=== PATIENT | male | born 1980 | race Caucasian/White ===

== ENCOUNTER 2017-09-18 08:50 | Inpatient (IN) | payer OTHER ==
[2017-09-18 12:23] VITALS: BMI 24.1
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
[2017-09-18] MEDS ORDERED: MAG HYDROX/AL HYDROX/SIMETH 30 ML UNIT-DOSE CUP PO PRN (16:41)
[2017-09-18] MEDS ORDERED: P-EPHED 60MG/TRIPROLIDI 2.5MG TABLET PO PRN (16:41)
[2017-09-18] MEDS ORDERED: NICOTINE POLACRILEX 4 MG GUM BC PRN (16:41)
[2017-09-18] MEDS ORDERED: guaiFENesin/D-METHORPHAN HB 10 ML UNIT-DOSE CUPS PO PRN (16:41)
[2017-09-18] MEDS ORDERED: MAGNESIUM CITRATE 300 ML BOTTLE PO PRN (16:41)
[2017-09-18] MEDS ORDERED: LOPERAMIDE HCL 2 MG CAPSULE PO PRN (16:41)
[2017-09-18] MEDS ORDERED: IBUPROFEN 400 MG TABLET (FP) PO PRN (16:41)
[2017-09-18] MEDS ORDERED: MENTHOL/PHENOL 1 EACH UD MM PRN (16:41)
[2017-09-18] MEDS ORDERED: chlordiazePOXIDE HCL 25 MG CAPSULE PO PRN (16:41)
[2017-09-18] MEDS ORDERED: MAGNESIUM HYDROX 2400MG/30ML ORAL SUSPENSION 30 ML CUP PO PRN (16:41)
[2017-09-18] MEDS ORDERED: chlordiazePOXIDE HCL 25 MG CAPSULE PO ONE (18:15)
[2017-09-18] MEDS: NICOTINE 21 MG/24 HOURS TOPICAL PATCH TD SCH (18:51)
[2017-09-18] MEDS: BACITRACIN 0.9 GM PACKET TP SCH (22:22)
[2017-09-18] MEDS: THIAMINE HCL 100 MG TABLET (FP) PO SCH (22:22)
[2017-09-18] MEDS: chlordiazePOXIDE HCL 25 MG CAPSULE PO SCH (22:23)
[2017-09-18] MEDS: AMOXICILLIN 500 MG CAPSULE (FP) PO SCH (22:23)
[2017-09-18 23:01] LABS: URINE APPEARANCE CLEAR; URINE BILIRUBIN NEGATIVE (NEGATIVE); URINE BLOOD NEGATIVE (NEGATIVE); URINE COLOR YELLOW; URINE GLUCOSE (UA) NEGATIVE (NEGATIVE); URINE KETONE NEGATIVE (NEGATIVE); URINE LEUK ESTERASE NEGATIVE (NEGATIVE); URINE NITRITE NEGATIVE (NEGATIVE); URINE PROTEIN NEGATIVE (NEGATIVE); URINE UROBILINOGEN NEGATIVE mg/dL (0.2-1.0)
[2017-09-19] MEDS ORDERED: METHADONE HCL 10 MG TABLET ONE (05:04)
[2017-09-19] MEDS ORDERED: METHADONE HCL 40 MG DISPERSABLE TABLET ONE (05:05)
[2017-09-19] MEDS ORDERED: METHADONE HCL 10 MG TABLET PO SCH (06:00)
[2017-09-19] MEDS: METHADONE 40 MG, METHADONE 20 MG PO SCH (06:08)
[2017-09-19] MEDS: chlordiazePOXIDE HCL 25 MG CAPSULE PO SCH ×4 (06:08→22:09)
[2017-09-19 09:58] LABS: HEMOGLOBIN 11.3 GM/dL (11.7-16.9); MCH 27.1 pg (25.7-33.7); MCHC 31.4 g/dl (32.0-35.9); MEAN CELL VOLUME 86.2 fl (80-96); RBC 4.17 M/mm3 (4.00-5.60); RDW 16.6 % (11.9-15.9); WHITE BLOOD COUNT 5.5 K/mm3 (4.0-10.0)
[2017-09-19] MEDS: NICOTINE 21 MG/24 HOURS TOPICAL PATCH TD SCH (10:23)
[2017-09-19] MEDS: BACITRACIN 0.9 GM PACKET TP SCH ×2 (10:23→23:18)
[2017-09-19] MEDS: AMOXICILLIN 500 MG CAPSULE (FP) PO SCH ×2 (10:23→22:09)
[2017-09-19] MEDS: PRENATAL VITAMINS W/ FOLIC ACID TABLET (FP) PO SCH (10:23)
--- NOTE | 2017-09-19 10:45 | PN ---
[facility] CIWA - CIWA Score Nausea/Vomitin-No Nausea/No Vomiting Muscle Tremors: 4-Moderate,w/Arms Extend Anxiety: 4-Mod. Anxious/Guarded Agitation: 4-Moderately Restless Paroxysmal Sweats: 1-Minimal Palms Moist Orientation: 0-Oriented Tacttile Disturbances: 3-Moderate Itch/Numb/Burn Auditory Disturbances: 0-None Visual Disturbances: 0-None Headache: 0-None Present CIWA-Ar Total Score: 16 S Progress Note (SOAP) Subjective: C/O "A LOT OF BODY ACHES", ANXIETY,SWEATS,CHILLS, INTERMITTENT SLEEP. Objective: 09/19/17 10:46 Vital Signs Temperature 96.3 F L 09/19/17 09:24 Pulse Rate 89 09/19/17 09:24 Respiratory Rate 18 09/19/17 09:24 Blood Pressure 118/77 09/19/17 09:24 O2 Sat by Pulse Oximetry (%) Laboratory Last Values WBC 5.5 K/mm3 (4.0-10.0) 09/19/17 06:00 RBC 4.17 M/mm3 (4.00-5.60) 09/19/17 06:00 Hgb 11.3 GM/dL (11.7-16.9) L 09/19/17 06:00 Hct 36.0 % (35.4-49) 09/19/17 06:00 MCV 86.2 fl (80-96) 09/19/17 06:00 MCH 27.1 pg (25.7-33.7) 09/19/17 06:00 MCHC 31.4 g/dl (32.0-35.9) L 09/19/17 06:00 RDW 16.6 % (11.9-15.9) H 09/19/17 06:00 MPV 9.0 fl (7.5-11.1) 09/19/17 06:00 Urine Color Yellow 09/18/17 22:40 Urine Appearance Clear 09/18/17 22:40 Urine pH 5.0 (5.0-8.0) 09/18/17 22:40 Ur Specific [place] 1.009 (1.001-1.035) 09/18/17 22:40 Urine Protein Negative (NEGATIVE) 09/18/17 22:40 Urine Glucose (UA) Negative (NEGATIVE) 09/18/17 22:40 Urine Ketones Negative (NEGATIVE) 09/18/17 22:40 Urine Blood Negative (NEGATIVE) 09/18/17 22:40 Urine Nitrite Negative (NEGATIVE) 09/18/17 22:40 Urine Bilirubin Negative (NEGATIVE) 09/18/17 22:40 Urine Urobilinogen Negative mg/dL (0.2-1.0) 09/18/17 22:40 Ur Leukocyte Esterase Negative (NEGATIVE) 09/18/17 22:40 HIV 1&2 Antibody Screen Negative 09/18/17 15:00 HIV P24 Antigen Negative 09/18/17 15:00 OTHER RESULTS PENDING Assessment: 09/19/17 10:46 WITHDRAWAL SX Plan: CONTINUE DETOX FLEXERIL AND MOTRIN DIRECTED
[2017-09-19 11:32] LABS: CHLORIDE 104 mmol/L (98-107); POTASSIUM 3.9 mmol/L (3.5-5.1); SODIUM 138 mmol/L (136-145)
[2017-09-19] MEDS: IBUPROFEN 600 MG TABLET (FP) PO PRN ×2 (11:34→22:10)
[2017-09-19 11:44] LABS: ALBUMIN 3.7 g/dl (3.4-5.0); ALK PHOS 112 U/L (45-117); ANION GAP 11 (8-16); BILIRUBIN,TOTAL 0.6 mg/dL (0.2-1.0); BLOOD UREA NITROGEN 11 mg/dL (7-18); CALCIUM 9.3 mg/dL (8.5-10.1); CO2 23 mmol/L (21-32); CREATININE 0.9 mg/dL (0.7-1.3); GLUCOSE,RANDOM 84 mg/dL (74-106); SGOT/AST 210 U/L (15-37); SGPT/ALT 125 U/L (12-78); TOT PROT 9.6 g/dl (6.4-8.2)
[2017-09-19] MEDS: CYCLOBENZAPRINE HCL 10 MG TABLET (FP) PO SCH ×2 (13:13→22:09)
[2017-09-19 14:36] LABS: PLATELET COUNT 204 K/MM3 (134-434)
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
[2017-09-19] MEDS: THIAMINE HCL 100 MG TABLET (FP) PO SCH (22:09)
[2017-09-20] MEDS ORDERED: METHADONE HCL 40 MG DISPERSABLE TABLET ONE (03:11)
[2017-09-20] MEDS ORDERED: METHADONE HCL 10 MG TABLET ONE (03:11)
[2017-09-20] MEDS: METHADONE 40 MG, METHADONE 20 MG PO SCH (05:59)
[2017-09-20] MEDS: chlordiazePOXIDE HCL 25 MG CAPSULE PO SCH ×3 (05:59→17:55)
[2017-09-20] MEDS: CYCLOBENZAPRINE HCL 10 MG TABLET (FP) PO SCH ×3 (05:59→22:05)
[2017-09-20] MEDS: IBUPROFEN 600 MG TABLET (FP) PO PRN (06:02)
--- NOTE | 2017-09-20 07:53 | EKG ---
Test Reason : Blood Pressure : / mmHG Vent. Rate : 064 BPM Atrial Rate : 064 BPM P-R Int : 142 ms QRS Dur : 100 ms QT Int : 464 ms P-R-T Axes : 060 070 064 degrees QTc Int : 478 ms NORMAL SINUS RHYTHM NORMAL ECG WHEN COMPARED WITH ECG OF 18-SEP-2017 18:57, NO SIGNIFICANT CHANGE WAS FOUND Confirmed by SYEDA JUSTIN MD ([id number]) on 09/20/2017 7:53:36 AM Referred By: Confirmed By:SYEDA JUSTIN MD
--- NOTE | 2017-09-20 07:54 | EKG ---
Test Reason : Blood Pressure : / mmHG Vent. Rate : 067 BPM Atrial Rate : 067 BPM P-R Int : 130 ms QRS Dur : 096 ms QT Int : 470 ms P-R-T Axes : 053 073 066 degrees QTc Int : 496 ms NORMAL SINUS RHYTHM PROLONGED QT ABNORMAL ECG NO PREVIOUS ECGS AVAILABLE Confirmed by MARGOTH FAITH, SYEDA ([id number]) on 09/20/2017 7:54:24 AM Referred By: Confirmed By:SYEDA JUSTIN MD
[2017-09-20] MEDS: NICOTINE 21 MG/24 HOURS TOPICAL PATCH TD SCH (10:17)
[2017-09-20] MEDS: PRENATAL VITAMINS W/ FOLIC ACID TABLET (FP) PO SCH (10:17)
[2017-09-20] MEDS: BACITRACIN 0.9 GM PACKET TP SCH ×2 (10:17→22:04)
[2017-09-20] MEDS: AMOXICILLIN 500 MG CAPSULE (FP) PO SCH ×2 (10:18→22:05)
[2017-09-20] MEDS: ACETAMINOPHEN 325 MG TABLET (FP) PO PRN ×2 (10:19→17:57)
--- NOTE | 2017-09-20 12:13 | PN ---
[facility] CIWA - CIWA Score Nausea/Vomitin-No Nausea/No Vomiting Muscle Tremors: 4-Moderate,w/Arms Extend Anxiety: 4-Mod. Anxious/Guarded Agitation: 4-Moderately Restless Paroxysmal Sweats: 1-Minimal Palms Moist Orientation: 0-Oriented Tacttile Disturbances: 3-Moderate Itch/Numb/Burn Auditory Disturbances: 0-None Visual Disturbances: 0-None Headache: 0-None Present CIWA-Ar Total Score: 16 BHS Progress Note (SOAP) Subjective: ANXIETY,SWEATS, TREMORS,INTERMITTENT SLEEP. Objective: 09/20/17 12:09 Vital Signs Temperature 97.0 F L 09/20/17 09:53 Pulse Rate 77 09/20/17 09:53 Respiratory Rate 18 09/20/17 09:53 Blood Pressure 125/78 09/20/17 09:53 O2 Sat by Pulse Oximetry (%) Laboratory Last Values WBC 5.5 K/mm3 (4.0-10.0) 09/19/17 06:00 RBC 4.17 M/mm3 (4.00-5.60) 09/19/17 06:00 Hgb 11.3 GM/dL (11.7-16.9) L 09/19/17 06:00 Hct 36.0 % (35.4-49) 09/19/17 06:00 MCV 86.2 fl (80-96) 09/19/17 06:00 MCH 27.1 pg (25.7-33.7) 09/19/17 06:00 MCHC 31.4 g/dl (32.0-35.9) L 09/19/17 06:00 RDW 16.6 % (11.9-15.9) H 09/19/17 06:00 Plt Count 204 K/MM3 (134-434) 09/19/17 06:00 MPV 9.0 fl (7.5-11.1) 09/19/17 06:00 Sodium 138 mmol/L (136-145) 09/19/17 06:00 Potassium 3.9 mmol/L (3.5-5.1) 09/19/17 06:00 Chloride 104 mmol/L (98-107) 09/19/17 06:00 Carbon Dioxide 23 mmol/L (21-32) 09/19/17 06:00 Anion Gap 11 (8-16) 09/19/17 06:00 BUN 11 mg/dL (7-18) 09/19/17 06:00 Creatinine 0.9 mg/dL (0.7-1.3) 09/19/17 06:00 Creat Clearance w eGFR > 60 (>60) 09/19/17 06:00 Random Glucose 84 mg/dL (74-106) 09/19/17 06:00 Calcium 9.3 mg/dL (8.5-10.1) 09/19/17 06:00 Total Bilirubin 0.6 mg/dL (0.2-1.0) 09/19/17 06:00 AST 210 U/L (15-37) H 09/19/17 06:00 ALT 125 U/L (12-78) H 09/19/17 06:00 Alkaline Phosphatase 112 U/L (45-117) 09/19/17 06:00 Total Protein 9.6 g/dl (6.4-8.2) H 09/19/17 06:00 Albumin 3.7 g/dl (3.4-5.0) 09/19/17 06:00 Urine Color Yellow 09/18/17 22:40 Urine Appearance Clear 09/18/17 22:40 Urine pH 5.0 (5.0-8.0) 09/18/17 22:40 Ur Specific [place] 1.009 (1.001-1.035) 09/18/17 22:40 Urine Protein Negative (NEGATIVE) 09/18/17 22:40 Urine Glucose (UA) Negative (NEGATIVE) 09/18/17 22:40 Urine Ketones Negative (NEGATIVE) 09/18/17 22:40 Urine Blood Negative (NEGATIVE) 09/18/17 22:40 Urine Nitrite Negative (NEGATIVE) 09/18/17 22:40 Urine Bilirubin Negative (NEGATIVE) 09/18/17 22:40 Urine Urobilinogen Negative mg/dL (0.2-1.0) 09/18/17 22:40 Ur Leukocyte Esterase Negative (NEGATIVE) 09/18/17 22:40 RPR Titer Nonreactive (NONREACTIVE) 09/19/17 06:00 HIV 1&2 Antibody Screen Negative 09/18/17 15:00 HIV P24 Antigen Negative 09/18/17 15:00 LABS NOTED Assessment: 09/20/17 12:10 WITHDRAWAL SX Plan: CONTINUE DETOX REPEAT AST/ALT;INR IN AM
[2017-09-20] MEDS ORDERED: NAPROXEN 500 MG TABLET (FP) PO ONE ×2 (12:30→15:30)
[2017-09-20] MEDS: THIAMINE HCL 100 MG TABLET (FP) PO SCH (22:04)
[2017-09-20] MEDS: chlordiazePOXIDE 5 MG CAPSULE PO SCH (22:05)
[2017-09-20] MEDS: NAPROXEN 500 MG TABLET (FP) PO SCH (22:05)
[2017-09-21] MEDS ORDERED: METHADONE HCL 10 MG TABLET ONE (04:04)
[2017-09-21] MEDS ORDERED: METHADONE HCL 40 MG DISPERSABLE TABLET ONE (04:05)
[2017-09-21] MEDS: METHADONE 40 MG, METHADONE 20 MG PO SCH (05:37)
[2017-09-21] MEDS: chlordiazePOXIDE 5 MG CAPSULE PO SCH ×3 (05:37→17:24)
[2017-09-21] MEDS: CYCLOBENZAPRINE HCL 10 MG TABLET (FP) PO SCH ×3 (05:38→22:08)
[2017-09-21] MEDS: ACETAMINOPHEN 325 MG TABLET (FP) PO PRN ×2 (05:38→17:27)
[2017-09-21 10:12] LABS: SGOT/AST 95 U/L (15-37); SGPT/ALT 93 U/L (12-78)
[2017-09-21 10:18] LABS: INR 0.94 (0.82-1.09); PROTHROMBIN TIME (PATIENT) 10.6 SEC (9.98-11.88)
[2017-09-21] MEDS: BACITRACIN 0.9 GM PACKET TP SCH ×2 (10:29→22:09)
[2017-09-21] MEDS: PRENATAL VITAMINS W/ FOLIC ACID TABLET (FP) PO SCH (10:29)
[2017-09-21] MEDS: NAPROXEN 500 MG TABLET (FP) PO SCH ×2 (10:29→22:08)
[2017-09-21] MEDS: AMOXICILLIN 500 MG CAPSULE (FP) PO SCH ×2 (10:29→22:08)
[2017-09-21] MEDS: NICOTINE 21 MG/24 HOURS TOPICAL PATCH TD SCH (10:30)
--- NOTE | 2017-09-21 10:33 | PN ---
S Progress Note (SOAP) Subjective: SLIGHT ANXIETY, SWEATS. OOB AMBULATING WITH STEADY GAIT BUT APPEARS FATIGUED. Objective: 09/21/17 10:33 Vital Signs Temperature 96.0 F L 09/21/17 09:57 Pulse Rate 67 09/21/17 09:57 Respiratory Rate 19 09/21/17 09:57 Blood Pressure 123/73 09/21/17 09:57 O2 Sat by Pulse Oximetry (%) Laboratory Last Values WBC 5.5 K/mm3 (4.0-10.0) 09/19/17 06:00 RBC 4.17 M/mm3 (4.00-5.60) 09/19/17 06:00 Hgb 11.3 GM/dL (11.7-16.9) L 09/19/17 06:00 Hct 36.0 % (35.4-49) 09/19/17 06:00 MCV 86.2 fl (80-96) 09/19/17 06:00 MCH 27.1 pg (25.7-33.7) 09/19/17 06:00 MCHC 31.4 g/dl (32.0-35.9) L 09/19/17 06:00 RDW 16.6 % (11.9-15.9) H 09/19/17 06:00 Plt Count 204 K/MM3 (134-434) 09/19/17 06:00 MPV 9.0 fl (7.5-11.1) 09/19/17 06:00 Sodium 138 mmol/L (136-145) 09/19/17 06:00 Potassium 3.9 mmol/L (3.5-5.1) 09/19/17 06:00 Chloride 104 mmol/L (98-107) 09/19/17 06:00 Carbon Dioxide 23 mmol/L (21-32) 09/19/17 06:00 Anion Gap 11 (8-16) 09/19/17 06:00 BUN 11 mg/dL (7-18) 09/19/17 06:00 Creatinine 0.9 mg/dL (0.7-1.3) 09/19/17 06:00 Creat Clearance w eGFR > 60 (>60) 09/19/17 06:00 Random Glucose 84 mg/dL (74-106) 09/19/17 06:00 Calcium 9.3 mg/dL (8.5-10.1) 09/19/17 06:00 Total Bilirubin 0.6 mg/dL (0.2-1.0) 09/19/17 06:00 AST 95 U/L (15-37) H D 09/21/17 07:00 ALT 93 U/L (12-78) H D 09/21/17 07:00 Alkaline Phosphatase 112 U/L (45-117) 09/19/17 06:00 Total Protein 9.6 g/dl (6.4-8.2) H 09/19/17 06:00 Albumin 3.7 g/dl (3.4-5.0) 09/19/17 06:00 Urine Color Yellow 09/18/17 22:40 Urine Appearance Clear 09/18/17 22:40 Urine pH 5.0 (5.0-8.0) 09/18/17 22:40 Ur Specific [place] 1.009 (1.001-1.035) 09/18/17 22:40 Urine Protein Negative (NEGATIVE) 09/18/17 22:40 Urine Glucose (UA) Negative (NEGATIVE) 09/18/17 22:40 Urine Ketones Negative (NEGATIVE) 09/18/17 22:40 Urine Blood Negative (NEGATIVE) 09/18/17 22:40 Urine Nitrite Negative (NEGATIVE) 09/18/17 22:40 Urine Bilirubin Negative (NEGATIVE) 09/18/17 22:40 Urine Urobilinogen Negative mg/dL (0.2-1.0) 09/18/17 22:40 Ur Leukocyte Esterase Negative (NEGATIVE) 09/18/17 22:40 RPR Titer Nonreactive (NONREACTIVE) 09/19/17 06:00 HIV 1&2 Antibody Screen Negative 09/18/17 15:00 HIV P24 Antigen Negative 09/18/17 15:00 Assessment: 09/21/17 10:33 WITHDRAWAL SX Plan: CONTINUE DETOX
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
[2017-09-21] MEDS ORDERED: hydrOXYzine PAMOATE 50 MG CAPSULE (FP) PO PRN (15:40)
[2017-09-21] MEDS: THIAMINE HCL 100 MG TABLET (FP) PO SCH (22:08)
[2017-09-21] MEDS: chlordiazePOXIDE HCL 10 MG CAPSULE PO SCH (22:09)
[2017-09-22] MEDS ORDERED: METHADONE HCL 40 MG DISPERSABLE TABLET ONE (03:44)
[2017-09-22] MEDS ORDERED: METHADONE HCL 10 MG TABLET ONE (03:44)
[2017-09-22] MEDS: METHADONE 40 MG, METHADONE 20 MG PO SCH (05:23)
[2017-09-22] MEDS: chlordiazePOXIDE HCL 10 MG CAPSULE PO SCH ×3 (05:24→17:36)
[2017-09-22] MEDS: CYCLOBENZAPRINE HCL 10 MG TABLET (FP) PO SCH ×2 (05:24→15:26)
[2017-09-22] MEDS ORDERED: ESCITALOPRAM OXALATE 10 MG TABLET (FP) PO SCH (10:00)
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
[2017-09-22] MEDS: NICOTINE 21 MG/24 HOURS TOPICAL PATCH TD SCH (10:21)
[2017-09-22] MEDS: NAPROXEN 500 MG TABLET (FP) PO SCH (10:21)
[2017-09-22] MEDS: AMOXICILLIN 500 MG CAPSULE (FP) PO SCH (10:21)
[2017-09-22] MEDS: PRENATAL VITAMINS W/ FOLIC ACID TABLET (FP) PO SCH (10:21)
[2017-09-22] MEDS: BACITRACIN 0.9 GM PACKET TP SCH (10:21)
[2017-09-22 17:50] VITALS: BP 122/79; PULSE 77; TEMP 97.7
== END 2017-09-22 18:12 | disposition other institution (70) | DRG 773 ==
LOC: YASAS 08:50 → Y3N 15:47
PROVIDERS: ADMIT Internal Medicine; ATTEND Internal Medicine
PROC: HZ2ZZZZ Detoxification Services for Substance Abuse Treatment (ICD-10-PCS; principal; 2017-09-18)
DX: F11.20 Opioid dependence, uncomplicated (principal); F10.230 Alcohol dependence with withdrawal, uncomplicated; F19.24 Other psychoactive substance dependence with psychoactive substance-induced mood disorder; F32.9 Major depressive disorder, single episode, unspecified; F43.10 Post-traumatic stress disorder, unspecified; G47.00 Insomnia, unspecified; B18.2 Chronic viral hepatitis C; Z87.19 Personal history of other diseases of the digestive system; Z59.0 Homelessness
CPT/HCPCS: 36415; 80053; 81003; 84450; 84460; 85027; 85610; 86593; 87389; 93005; 93010

== ENCOUNTER 2017-09-22 18:19 | Inpatient (IN) | payer OTHER ==
[2017-09-22] MEDS ORDERED: MAGNESIUM HYDROX 2400MG/30ML ORAL SUSPENSION 30 ML CUP PO PRN (19:36)
[2017-09-22] MEDS ORDERED: MAGNESIUM CITRATE 300 ML BOTTLE PO PRN (19:36)
[2017-09-22] MEDS ORDERED: guaiFENesin/D-METHORPHAN HB 10 ML UNIT-DOSE CUPS PO PRN (19:36)
[2017-09-22] MEDS ORDERED: MENTHOL/PHENOL 1 EACH UD MM PRN (19:36)
[2017-09-22] MEDS ORDERED: P-EPHED 60MG/TRIPROLIDI 2.5MG TABLET PO PRN (19:36)
[2017-09-22] MEDS ORDERED: MAG HYDROX/AL HYDROX/SIMETH 30 ML UNIT-DOSE CUP PO PRN (19:36)
--- NOTE | 2017-09-22 19:42 | HP ---
[facility] Rehab Assess/Revision - Admission History Admitted to Rehab from: [facility] Date of Admission to Rehab: 09/22/17 - Findings Detox History & Physical reviewed: Yes Concur with findings: Yes Comments/Additional Findings: ADMIT TO REHAB Inpatient Rehab Admission - Initial Determination Are CD services needed?: Yes Free of communicable disease: Yes Not in need of hospitalization: Yes - Rehab Admission Criteria Previous failed treatment: Yes Poor recovery environment: Yes Comorbidities: Yes Lacks judgement: Yes Patient is meeting Inpatient Rehab admission criteria:: Yes
[2017-09-22] MEDS: THIAMINE HCL 100 MG TABLET (FP) PO SCH (21:41)
[2017-09-22] MEDS: NAPROXEN 500 MG TABLET (FP) PO SCH (22:06)
[2017-09-22] MEDS: CYCLOBENZAPRINE HCL 10 MG TABLET (FP) PO PRN (22:06)
[2017-09-23] MEDS ORDERED: METHADONE HCL 10 MG TABLET PO SCH (06:00)
[2017-09-23] MEDS ORDERED: METHADONE HCL 40 MG DISPERSABLE TABLET ONE (06:11)
[2017-09-23] MEDS ORDERED: METHADONE HCL 10 MG TABLET ONE (06:11)
[2017-09-23] MEDS: METHADONE 40 MG, METHADONE 20 MG PO SCH (06:29)
[2017-09-23] MEDS: NAPROXEN 500 MG TABLET (FP) PO SCH ×2 (09:25→22:14)
[2017-09-23] MEDS: PRENATAL VITAMINS W/ FOLIC ACID TABLET (FP) PO SCH (09:25)
[2017-09-23] MEDS: NICOTINE 21 MG/24 HOURS TOPICAL PATCH TD SCH (09:25)
[2017-09-23] MEDS: CYCLOBENZAPRINE HCL 10 MG TABLET (FP) PO PRN (15:26)
[2017-09-23] MEDS: IBUPROFEN 400 MG TABLET (FP) PO PRN ×2 (15:26→22:16)
[2017-09-23] MEDS: THIAMINE HCL 100 MG TABLET (FP) PO SCH (22:14)
[2017-09-24] MEDS: ACETAMINOPHEN 325 MG TABLET (FP) PO PRN (01:02)
[2017-09-24] MEDS ORDERED: METHADONE HCL 10 MG TABLET ONE (02:51)
[2017-09-24] MEDS ORDERED: METHADONE HCL 40 MG DISPERSABLE TABLET ONE (02:51)
[2017-09-24] MEDS: METHADONE 40 MG, METHADONE 20 MG PO SCH (06:54)
[2017-09-24] MEDS: IBUPROFEN 400 MG TABLET (FP) PO PRN ×2 (07:34→14:26)
[2017-09-24] MEDS: NAPROXEN 500 MG TABLET (FP) PO SCH ×2 (09:29→21:21)
[2017-09-24] MEDS: NICOTINE 21 MG/24 HOURS TOPICAL PATCH TD SCH (09:29)
[2017-09-24] MEDS: PRENATAL VITAMINS W/ FOLIC ACID TABLET (FP) PO SCH (09:29)
[2017-09-24] MEDS: CYCLOBENZAPRINE HCL 10 MG TABLET (FP) PO PRN ×2 (14:26→21:22)
[2017-09-24] MEDS: THIAMINE HCL 100 MG TABLET (FP) PO SCH (21:21)
[2017-09-25] MEDS ORDERED: METHADONE HCL 10 MG TABLET ONE (03:48)
[2017-09-25] MEDS ORDERED: METHADONE HCL 40 MG DISPERSABLE TABLET ONE (03:48)
[2017-09-25] MEDS: METHADONE 40 MG, METHADONE 20 MG PO SCH (06:13)
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
[2017-09-25] MEDS: ACETAMINOPHEN 325 MG TABLET (FP) PO PRN ×2 (07:09→17:02)
[2017-09-25] MEDS: CYCLOBENZAPRINE HCL 10 MG TABLET (FP) PO PRN ×2 (07:09→22:08)
[2017-09-25] MEDS: NAPROXEN 500 MG TABLET (FP) PO SCH ×3 (09:53→22:46)
[2017-09-25] MEDS: PRENATAL VITAMINS W/ FOLIC ACID TABLET (FP) PO SCH (09:53)
[2017-09-25] MEDS: NICOTINE 21 MG/24 HOURS TOPICAL PATCH TD SCH (09:53)
[2017-09-25] MEDS ORDERED: FLU VACCINE QUAD 60 MCG/0.5 ML (MDV 17-18) IM ONE (14:44)
[2017-09-25] MEDS ORDERED: LIDOCAINE 5% TOPICAL PATCH TP SCH (14:45)
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
[2017-09-25] MEDS: LIDOCAINE 5% TOPICAL PATCH TP SCH (15:40)
[2017-09-25] MEDS: GABAPENTIN 100 MG CAPSULE (FP) PO SCH ×2 (15:40→22:08)
[2017-09-25] MEDS ORDERED: LIDOCAINE PATCH REMOVAL MC SCH (22:00)
[2017-09-25] MEDS ORDERED: SUVOREXANT 10 MG TABLET PO PRN (22:00)
[2017-09-25] MEDS: THIAMINE HCL 100 MG TABLET (FP) PO SCH (22:08)
[2017-09-25] MEDS: AMITRIPTYLINE HCL 25 MG TABLET (FP) PO SCH ×2 (22:08→22:45)
[2017-09-25] MEDS: risperiDONE 1 MG TABLET (FP) PO SCH ×2 (22:08→22:46)
[2017-09-25] MEDS: hydrOXYzine PAMOATE 50 MG CAPSULE (FP) PO PRN (22:08)
[2017-09-25] MEDS: LIDOCAINE PATCH REMOVAL MC SCH (22:22)
[2017-09-25] MEDS ORDERED: ONDANSETRON *ODT* 4 MG TABLET SL PRN (22:37)
[2017-09-25] MEDS ORDERED: TRIMETHOBENZAMIDE HCL 200MG/2ML INJ IM PRN (22:40)
[2017-09-25] MEDS: LOPERAMIDE HCL 2 MG CAPSULE PO PRN (23:32)
[2017-09-26] MEDS ORDERED: METHADONE HCL 10 MG TABLET ONE (03:56)
[2017-09-26] MEDS ORDERED: METHADONE HCL 40 MG DISPERSABLE TABLET ONE (03:57)
[2017-09-26] MEDS: GABAPENTIN 100 MG CAPSULE (FP) PO SCH ×3 (05:59→21:23)
[2017-09-26] MEDS: METHADONE 40 MG, METHADONE 20 MG PO SCH (05:59)
[2017-09-26] MEDS: NAPROXEN 500 MG TABLET (FP) PO SCH ×2 (09:57→21:24)
[2017-09-26] MEDS: ESCITALOPRAM OXALATE 10 MG TABLET (FP) PO SCH (09:57)
[2017-09-26] MEDS: risperiDONE 1 MG TABLET (FP) PO SCH ×2 (09:57→21:24)
[2017-09-26] MEDS: LIDOCAINE 5% TOPICAL PATCH TP SCH (09:57)
[2017-09-26] MEDS: PRENATAL VITAMINS W/ FOLIC ACID TABLET (FP) PO SCH (09:57)
[2017-09-26] MEDS: NICOTINE 21 MG/24 HOURS TOPICAL PATCH TD SCH (09:57)
[2017-09-26] MEDS: LOPERAMIDE HCL 2 MG CAPSULE PO PRN (09:59)
[2017-09-26] MEDS: CYCLOBENZAPRINE HCL 10 MG TABLET (FP) PO PRN (21:23)
[2017-09-26] MEDS: THIAMINE HCL 100 MG TABLET (FP) PO SCH (21:23)
[2017-09-26] MEDS: AMITRIPTYLINE HCL 25 MG TABLET (FP) PO SCH (21:24)
[2017-09-26] MEDS: hydrOXYzine PAMOATE 50 MG CAPSULE (FP) PO PRN (21:24)
[2017-09-26] MEDS: LIDOCAINE PATCH REMOVAL MC SCH (21:25)
[2017-09-27] MEDS ORDERED: METHADONE HCL 10 MG TABLET ONE (03:58)
[2017-09-27] MEDS ORDERED: METHADONE HCL 40 MG DISPERSABLE TABLET ONE (03:59)
[2017-09-27] MEDS: GABAPENTIN 100 MG CAPSULE (FP) PO SCH ×3 (05:56→21:51)
[2017-09-27] MEDS: METHADONE 40 MG, METHADONE 20 MG PO SCH (05:56)
[2017-09-27] MEDS: NAPROXEN 500 MG TABLET (FP) PO SCH ×2 (09:34→21:51)
[2017-09-27] MEDS: LIDOCAINE 5% TOPICAL PATCH TP SCH (09:34)
[2017-09-27] MEDS: NICOTINE 21 MG/24 HOURS TOPICAL PATCH TD SCH (09:34)
[2017-09-27] MEDS: PRENATAL VITAMINS W/ FOLIC ACID TABLET (FP) PO SCH (09:34)
[2017-09-27] MEDS: risperiDONE 1 MG TABLET (FP) PO SCH ×2 (09:34→21:51)
[2017-09-27] MEDS: ESCITALOPRAM OXALATE 10 MG TABLET (FP) PO SCH (09:34)
[2017-09-27] MEDS: LOPERAMIDE HCL 2 MG CAPSULE PO PRN (12:42)
[2017-09-27] MEDS: THIAMINE HCL 100 MG TABLET (FP) PO SCH (21:51)
[2017-09-27] MEDS: AMITRIPTYLINE HCL 25 MG TABLET (FP) PO SCH (21:51)
[2017-09-27] MEDS: LIDOCAINE PATCH REMOVAL MC SCH (22:15)
[2017-09-28] MEDS ORDERED: METHADONE HCL 10 MG TABLET ONE (03:15)
[2017-09-28] MEDS ORDERED: METHADONE HCL 40 MG DISPERSABLE TABLET ONE (03:15)
[2017-09-28] MEDS: METHADONE 40 MG, METHADONE 20 MG PO SCH (06:17)
[2017-09-28] MEDS: GABAPENTIN 100 MG CAPSULE (FP) PO SCH ×3 (06:17→21:36)
[2017-09-28] MEDS: ACETAMINOPHEN 325 MG TABLET (FP) PO PRN (07:23)
[2017-09-28] MEDS: LIDOCAINE 5% TOPICAL PATCH TP SCH (10:28)
[2017-09-28] MEDS: risperiDONE 1 MG TABLET (FP) PO SCH ×2 (10:28→21:37)
[2017-09-28] MEDS: PRENATAL VITAMINS W/ FOLIC ACID TABLET (FP) PO SCH (10:28)
[2017-09-28] MEDS: ESCITALOPRAM OXALATE 10 MG TABLET (FP) PO SCH (10:28)
[2017-09-28] MEDS: NAPROXEN 500 MG TABLET (FP) PO SCH ×2 (10:28→21:36)
[2017-09-28] MEDS: IBUPROFEN 400 MG TABLET (FP) PO PRN (10:30)
[2017-09-28] MEDS: NICOTINE 21 MG/24 HOURS TOPICAL PATCH TD SCH (10:30)
[2017-09-28] MEDS: THIAMINE HCL 100 MG TABLET (FP) PO SCH (21:36)
[2017-09-28] MEDS: AMITRIPTYLINE HCL 25 MG TABLET (FP) PO SCH (21:36)
[2017-09-28] MEDS: LIDOCAINE PATCH REMOVAL MC SCH (21:37)
[2017-09-28] MEDS ORDERED: SUVOREXANT 10 MG TABLET PO PRN (22:00)
[2017-09-29] MEDS ORDERED: METHADONE HCL 40 MG DISPERSABLE TABLET ONE (03:58)
[2017-09-29] MEDS ORDERED: METHADONE HCL 10 MG TABLET ONE (03:58)
[2017-09-29] MEDS: METHADONE 40 MG, METHADONE 20 MG PO SCH (06:00)
[2017-09-29] MEDS: GABAPENTIN 100 MG CAPSULE (FP) PO SCH ×3 (06:01→21:33)
[2017-09-29] MEDS: ESCITALOPRAM OXALATE 10 MG TABLET (FP) PO SCH (09:42)
[2017-09-29] MEDS: risperiDONE 1 MG TABLET (FP) PO SCH ×2 (09:42→21:33)
[2017-09-29] MEDS: NAPROXEN 500 MG TABLET (FP) PO SCH ×2 (09:42→21:33)
[2017-09-29] MEDS: LIDOCAINE 5% TOPICAL PATCH TP SCH (09:42)
[2017-09-29] MEDS: PRENATAL VITAMINS W/ FOLIC ACID TABLET (FP) PO SCH (09:42)
[2017-09-29] MEDS: NICOTINE 21 MG/24 HOURS TOPICAL PATCH TD SCH (09:43)
[2017-09-29] MEDS: AMITRIPTYLINE HCL 25 MG TABLET (FP) PO SCH (21:33)
[2017-09-29] MEDS: THIAMINE HCL 100 MG TABLET (FP) PO SCH (21:33)
[2017-09-29] MEDS: LIDOCAINE PATCH REMOVAL MC SCH (21:34)
[2017-09-30] MEDS ORDERED: METHADONE HCL 10 MG TABLET ONE (04:01)
[2017-09-30] MEDS ORDERED: METHADONE HCL 40 MG DISPERSABLE TABLET ONE (04:01)
[2017-09-30] MEDS: METHADONE 40 MG, METHADONE 20 MG PO SCH (06:15)
[2017-09-30] MEDS: GABAPENTIN 100 MG CAPSULE (FP) PO SCH ×3 (06:16→21:43)
[2017-09-30] MEDS: LIDOCAINE 5% TOPICAL PATCH TP SCH (09:52)
[2017-09-30] MEDS: NAPROXEN 500 MG TABLET (FP) PO SCH ×2 (09:52→21:43)
[2017-09-30] MEDS: ESCITALOPRAM OXALATE 10 MG TABLET (FP) PO SCH (09:52)
[2017-09-30] MEDS: NICOTINE 21 MG/24 HOURS TOPICAL PATCH TD SCH (09:52)
[2017-09-30] MEDS: PRENATAL VITAMINS W/ FOLIC ACID TABLET (FP) PO SCH (09:52)
[2017-09-30] MEDS: risperiDONE 1 MG TABLET (FP) PO SCH ×2 (09:52→21:43)
[2017-09-30] MEDS: AMITRIPTYLINE HCL 25 MG TABLET (FP) PO SCH (21:43)
[2017-09-30] MEDS: CYCLOBENZAPRINE HCL 10 MG TABLET (FP) PO PRN (21:43)
[2017-09-30] MEDS: THIAMINE HCL 100 MG TABLET (FP) PO SCH (21:43)
[2017-09-30] MEDS: LIDOCAINE PATCH REMOVAL MC SCH (22:00)
[2017-10-01] MEDS ORDERED: METHADONE HCL 40 MG DISPERSABLE TABLET ONE (04:03)
[2017-10-01] MEDS ORDERED: METHADONE HCL 10 MG TABLET ONE (04:03)
[2017-10-01] MEDS: GABAPENTIN 100 MG CAPSULE (FP) PO SCH ×3 (06:14→21:31)
[2017-10-01] MEDS: METHADONE 40 MG, METHADONE 20 MG PO SCH (06:14)
[2017-10-01] MEDS: risperiDONE 1 MG TABLET (FP) PO SCH ×2 (09:48→21:31)
[2017-10-01] MEDS: NAPROXEN 500 MG TABLET (FP) PO SCH ×2 (09:48→21:31)
[2017-10-01] MEDS: LIDOCAINE 5% TOPICAL PATCH TP SCH (09:48)
[2017-10-01] MEDS: PRENATAL VITAMINS W/ FOLIC ACID TABLET (FP) PO SCH (09:48)
[2017-10-01] MEDS: NICOTINE 21 MG/24 HOURS TOPICAL PATCH TD SCH (09:48)
[2017-10-01] MEDS: ESCITALOPRAM OXALATE 10 MG TABLET (FP) PO SCH (09:48)
[2017-10-01] MEDS ORDERED: SUVOREXANT 10 MG TABLET PO PRN (14:06)
[2017-10-01] MEDS: THIAMINE HCL 100 MG TABLET (FP) PO SCH (21:30)
[2017-10-01] MEDS: AMITRIPTYLINE HCL 25 MG TABLET (FP) PO SCH (21:31)
[2017-10-01] MEDS: CYCLOBENZAPRINE HCL 10 MG TABLET (FP) PO PRN (21:31)
[2017-10-01] MEDS: LIDOCAINE PATCH REMOVAL MC SCH (21:33)
[2017-10-02] MEDS ORDERED: METHADONE HCL 10 MG TABLET ONE (03:23)
[2017-10-02] MEDS ORDERED: METHADONE HCL 40 MG DISPERSABLE TABLET ONE (03:23)
[2017-10-02] MEDS: GABAPENTIN 100 MG CAPSULE (FP) PO SCH ×3 (06:40→21:38)
[2017-10-02] MEDS: ACETAMINOPHEN 325 MG TABLET (FP) PO PRN (06:40)
[2017-10-02] MEDS: METHADONE 40 MG, METHADONE 20 MG PO SCH (06:40)
[2017-10-02] MEDS: risperiDONE 1 MG TABLET (FP) PO SCH ×2 (10:13→10:15)
[2017-10-02] MEDS: ESCITALOPRAM OXALATE 10 MG TABLET (FP) PO SCH (10:13)
[2017-10-02] MEDS: PRENATAL VITAMINS W/ FOLIC ACID TABLET (FP) PO SCH (10:13)
[2017-10-02] MEDS: LIDOCAINE 5% TOPICAL PATCH TP SCH (10:13)
[2017-10-02] MEDS: NAPROXEN 500 MG TABLET (FP) PO SCH ×2 (10:13→21:38)
[2017-10-02] MEDS: NICOTINE 21 MG/24 HOURS TOPICAL PATCH TD SCH (10:15)
--- NOTE | 2017-10-02 11:36 | PN ---
Psychiatric Progress Note Vital Signs: Vital Signs Period Temp Pulse Resp BP Sys/Bella Pulse Ox Last 24 Hr 97.7 F 110 18 140/90 Date of Session: 10/02/17 Chief Complaint:: Drowsiness HPI: Patient addressing Alcohol Dependence comorbid with Opoid Dependence on Agonist Therapy, Nicotine Dependence, MDD, recurrent episode, Postraumatic Stress Disorder, Alcohol-induced Anxiety Disorder and Alcoholo-induced Sleep Disorder ROS: Gastritis, Hep C, Cirrhosis, Migraine headache Current Medications: Active Medications Generic Name Dose Route Start Last Admin Trade Name Freq PRN Reason Stop Dose Admin Acetaminophen 650 mg 09/22/17 19:36 10/02/17 06:40 Tylenol - PO 650 mg Q4H PRN Administration FEVER Al Hydroxide/Mg Hydroxide 30 ml 09/22/17 19:36 Mylanta Oral Suspension - PO Q6H PRN DYSPEPSIA Amitriptyline HCl 50 mg 09/25/17 22:00 10/01/17 21:31 Elavil - PO 50 mg HS NICANOR Administration Cyclobenzaprine HCl 10 mg 09/22/17 21:38 10/01/17 21:31 Flexeril - PO 10 mg TID PRN Administration MUSCLE SPASMS Escitalopram Oxalate 10 mg 09/26/17 10:00 10/02/17 10:13 Lexapro - PO 10 mg DAILY NICANOR Administration Eucalyptus/Menthol/Phenol/Sorbitol 1 each 09/22/17 19:36 09/23/17 09:28 Cepastat Lozenge - MM 1 each Q4H PRN Administration SORE THROAT Gabapentin 100 mg 09/25/17 15:15 10/02/17 06:40 Neurontin - PO 100 mg TID NICANOR Administration Guaifenesin 10 ml 09/22/17 19:36 Robitussin Dm - PO Q6H PRN COUGH Hydroxyzine Pamoate 50 mg 09/22/17 19:36 09/26/17 21:24 Vistaril - PO 50 mg Q4H PRN Administration AGITATION Lidocaine 1 patch 09/25/17 15:15 10/02/17 10:13 Lidoderm Patch - TP 1 patch DAILY NICANOR Administration Loperamide HCl 4 mg 09/22/17 19:36 09/27/17 12:42 Imodium - PO 4 mg Q6H PRN Administration DIARRHEA Magnesium Citrate 300 ml 09/22/17 19:36 Citroma - PO Q48H PRN CONSTIPATION Magnesium Hydroxide 30 ml 09/22/17 19:36 Milk Of Magnesia - PO DAILY PRN CONSTIPATION Methadone HCl 40 mg/ Methadone 60 mg 09/30/17 06:00 10/02/17 06:40 HCl 20 mg PO 10/07/17 05:59 60 mg DAILY@0600 NICANOR Administration Miscellaneous 1 each 09/25/17 22:00 10/01/17 21:33 Lidoderm Patch Removal MC 1 each DAILY@2200 NICANOR Administration Naproxen 500 mg 09/22/17 22:00 10/02/17 10:13 Naprosyn - PO 500 mg BID NICANOR Administration Nicotine 21 mg 09/23/17 10:00 10/02/17 10:15 Nicoderm Patch - TD 21 mg DAILY NICANOR Administration Ondansetron HCl 8 mg 09/25/17 22:37 Zofran Odt - SL Q8H PRN NAUSEA AND/OR VOMITING Multivit/Folic Acid/Iron 1 tab 09/23/17 10:00 10/02/17 10:13 Vitamins (Sjr) - PO 1 tab DAILY NICANOR Administration Pseudoephedrine/Triprolidine 1 combo 09/22/17 19:36 Actifed - PO TID PRN NASAL CONGESTION Risperidone 1 mg 09/25/17 22:00 10/02/17 10:13 Risperdal - PO 1 mg BID NICANOR Administration Thiamine HCl 100 mg 09/22/17 22:00 10/01/17 21:30 Vitamin B1 - PO 100 mg HS NICANOR Administration Trimethobenzamide HCl 200 mg 09/25/17 22:40 09/25/17 23:10 Tigan Injection - IM 200 mg Q8H PRN Administration NAUSEA Medication(s) Change(s): Hold Risperdal and Belsomra Current Side Effect: No Lab tests ordered: Yes Lab tests reviewed: Yes Provider note:: Requested to reevaluate patient's medications due to concerns over sedation. Patient was observed to be very drowsy, sleeping during the day including mealtime while eating as well as group sessions. He is currently prescribed a lot of sedative medications(Elavil, Risperdal, Tigan, Belsomra) along with methadone 60 mg/day. Will discontinue Belsomra, Risperdal and request that patient be seen by medical staff for reevalution of their prescriptions Total face to face time:: 25 Mental Status Exam - Mental Status Exam Alert and Oriented to: Time (not fully oriented), Place, Person Cognitive Function: Grossly Intact Patient Appearance: Unkempt Mood: Hopeful, Euthymic Affect: Appropriate Patient Behavior: Sedated, Cooperative Speech Pattern: Clear (unclear at time) Voice Loudness: Mildly Soft/Quiet Thought Process: Intact, Goal Oriented Thought Disorder: Not Present Hallucinations: Denies Suicidal Ideation: Denies Homicidal Ideation: Denies Insight/Judgement: Fair Sleep: Fair Appetite: Good Muscle strength/Tone: Normal Gait/Station: Other (use cane as ambulatory aid) Psychiatric Treatment Plan - Problem List (1) Alcohol dependence Current Visit: Yes (2) Nicotine dependence Current Visit: No (3) MDD (major depressive disorder) Current Visit: No Comment: self reports. Will restart patient on lexapro 10mg. (4) Post traumatic stress disorder (PTSD) Current Visit: No (5) Alcohol-induced anxiety disorder Current Visit: Yes (6) Alcohol-induced sleep disorder Current Visit: Yes (7) History of gastritis Current Visit: No (8) History of hepatitis C Current Visit: No (9) Opioid dependence on agonist therapy Current Visit: Yes Initial treatment plan: 1) Discontinue Risperdal 1 mg po BID and Besomra 10 mg po HS prn. 2) Request that patient be seen by medical staff for reevalution of their prescription. 3) Monitor progress
[2017-10-02] MEDS: THIAMINE HCL 100 MG TABLET (FP) PO SCH (21:38)
[2017-10-02] MEDS: CYCLOBENZAPRINE HCL 10 MG TABLET (FP) PO PRN (21:38)
[2017-10-02] MEDS: LIDOCAINE PATCH REMOVAL MC SCH (21:39)
[2017-10-03] MEDS ORDERED: METHADONE HCL 10 MG TABLET ONE (03:11)
[2017-10-03] MEDS ORDERED: METHADONE HCL 40 MG DISPERSABLE TABLET ONE (03:11)
[2017-10-03] MEDS: GABAPENTIN 100 MG CAPSULE (FP) PO SCH ×3 (06:12→21:59)
[2017-10-03] MEDS: METHADONE 40 MG, METHADONE 20 MG PO SCH (06:13)
[2017-10-03] MEDS: NICOTINE 21 MG/24 HOURS TOPICAL PATCH TD SCH (10:16)
[2017-10-03] MEDS: ESCITALOPRAM OXALATE 10 MG TABLET (FP) PO SCH (10:16)
[2017-10-03] MEDS: LIDOCAINE 5% TOPICAL PATCH TP SCH (10:16)
[2017-10-03] MEDS: PRENATAL VITAMINS W/ FOLIC ACID TABLET (FP) PO SCH (10:16)
[2017-10-03] MEDS: NAPROXEN 500 MG TABLET (FP) PO SCH ×2 (10:16→21:59)
[2017-10-03] MEDS: THIAMINE HCL 100 MG TABLET (FP) PO SCH (21:59)
[2017-10-03] MEDS: LIDOCAINE PATCH REMOVAL MC SCH (22:00)
[2017-10-03] MEDS: hydrOXYzine PAMOATE 50 MG CAPSULE (FP) PO PRN (22:01)
[2017-10-03] MEDS: CYCLOBENZAPRINE HCL 10 MG TABLET (FP) PO PRN (22:01)
[2017-10-04] MEDS ORDERED: METHADONE HCL 10 MG TABLET ONE (04:07)
[2017-10-04] MEDS ORDERED: METHADONE HCL 40 MG DISPERSABLE TABLET ONE (04:07)
[2017-10-04] MEDS: METHADONE 40 MG, METHADONE 20 MG PO SCH (06:05)
[2017-10-04] MEDS: GABAPENTIN 100 MG CAPSULE (FP) PO SCH ×3 (06:05→21:35)
[2017-10-04] MEDS: ACETAMINOPHEN 325 MG TABLET (FP) PO PRN (06:07)
[2017-10-04] MEDS: PRENATAL VITAMINS W/ FOLIC ACID TABLET (FP) PO SCH (09:52)
[2017-10-04] MEDS: NICOTINE 21 MG/24 HOURS TOPICAL PATCH TD SCH (09:52)
[2017-10-04] MEDS: LIDOCAINE 5% TOPICAL PATCH TP SCH (09:52)
[2017-10-04] MEDS: NAPROXEN 500 MG TABLET (FP) PO SCH ×2 (09:52→21:35)
[2017-10-04] MEDS: ESCITALOPRAM OXALATE 10 MG TABLET (FP) PO SCH (09:52)
[2017-10-04] MEDS: CYCLOBENZAPRINE HCL 10 MG TABLET (FP) PO PRN (21:35)
[2017-10-04] MEDS: hydrOXYzine PAMOATE 50 MG CAPSULE (FP) PO PRN (21:35)
[2017-10-04] MEDS: THIAMINE HCL 100 MG TABLET (FP) PO SCH (21:35)
[2017-10-04] MEDS: LIDOCAINE PATCH REMOVAL MC SCH (21:36)
[2017-10-05] MEDS ORDERED: METHADONE HCL 10 MG TABLET ONE (04:15)
[2017-10-05] MEDS ORDERED: METHADONE HCL 40 MG DISPERSABLE TABLET ONE (04:15)
[2017-10-05] MEDS: GABAPENTIN 100 MG CAPSULE (FP) PO SCH ×3 (06:38→21:56)
[2017-10-05] MEDS: ACETAMINOPHEN 325 MG TABLET (FP) PO PRN ×2 (06:42→13:27)
[2017-10-05] MEDS ORDERED: METHADONE HCL 10 MG TABLET PO ONE (06:45)
[2017-10-05] MEDS: METHADONE 40 MG, METHADONE 20 MG PO SCH (06:52)
[2017-10-05] MEDS ORDERED: METHADONE 40 MG, METHADONE 20 MG PO ONE (07:00)
[2017-10-05] MEDS: LIDOCAINE 5% TOPICAL PATCH TP SCH (09:58)
[2017-10-05] MEDS: PRENATAL VITAMINS W/ FOLIC ACID TABLET (FP) PO SCH (09:58)
[2017-10-05] MEDS: NICOTINE 21 MG/24 HOURS TOPICAL PATCH TD SCH (09:58)
[2017-10-05] MEDS: ESCITALOPRAM OXALATE 10 MG TABLET (FP) PO SCH (09:58)
[2017-10-05] MEDS: NAPROXEN 500 MG TABLET (FP) PO SCH ×2 (09:58→21:56)
[2017-10-05] MEDS: THIAMINE HCL 100 MG TABLET (FP) PO SCH (21:56)
[2017-10-05] MEDS: LIDOCAINE PATCH REMOVAL MC SCH (21:57)
[2017-10-05] MEDS: hydrOXYzine PAMOATE 50 MG CAPSULE (FP) PO PRN (21:58)
[2017-10-06] MEDS ORDERED: METHADONE HCL 10 MG TABLET ONE (04:08)
[2017-10-06] MEDS ORDERED: METHADONE HCL 40 MG DISPERSABLE TABLET ONE (04:08)
[2017-10-06] MEDS: METHADONE 40 MG, METHADONE 20 MG PO SCH (06:24)
[2017-10-06] MEDS: GABAPENTIN 100 MG CAPSULE (FP) PO SCH ×3 (06:25→21:05)
[2017-10-06] MEDS: ESCITALOPRAM OXALATE 10 MG TABLET (FP) PO SCH (10:03)
[2017-10-06] MEDS: LIDOCAINE 5% TOPICAL PATCH TP SCH (10:03)
[2017-10-06] MEDS: NICOTINE 21 MG/24 HOURS TOPICAL PATCH TD SCH (10:03)
[2017-10-06] MEDS: NAPROXEN 500 MG TABLET (FP) PO SCH ×2 (10:03→21:05)
[2017-10-06] MEDS: PRENATAL VITAMINS W/ FOLIC ACID TABLET (FP) PO SCH (10:03)
[2017-10-06] MEDS: THIAMINE HCL 100 MG TABLET (FP) PO SCH (21:05)
[2017-10-06] MEDS: hydrOXYzine PAMOATE 50 MG CAPSULE (FP) PO PRN (21:05)
[2017-10-06] MEDS: LIDOCAINE PATCH REMOVAL MC SCH (21:06)
[2017-10-07] MEDS: CYCLOBENZAPRINE HCL 10 MG TABLET (FP) PO PRN (01:08)
[2017-10-07] MEDS: hydrOXYzine PAMOATE 50 MG CAPSULE (FP) PO PRN (01:08)
[2017-10-07] MEDS: ACETAMINOPHEN 325 MG TABLET (FP) PO PRN (01:09)
[2017-10-07] MEDS ORDERED: METHADONE HCL 10 MG TABLET ONE (03:52)
[2017-10-07] MEDS ORDERED: METHADONE HCL 40 MG DISPERSABLE TABLET ONE (03:52)
[2017-10-07] MEDS: METHADONE 40 MG, METHADONE 20 MG PO SCH (06:30)
[2017-10-07] MEDS: GABAPENTIN 100 MG CAPSULE (FP) PO SCH ×3 (06:30→21:57)
[2017-10-07] MEDS: PRENATAL VITAMINS W/ FOLIC ACID TABLET (FP) PO SCH (10:37)
[2017-10-07] MEDS: LIDOCAINE 5% TOPICAL PATCH TP SCH (10:38)
[2017-10-07] MEDS: ESCITALOPRAM OXALATE 10 MG TABLET (FP) PO SCH (10:38)
[2017-10-07] MEDS: NICOTINE 21 MG/24 HOURS TOPICAL PATCH TD SCH (10:38)
[2017-10-07] MEDS: NAPROXEN 500 MG TABLET (FP) PO SCH ×2 (10:38→21:57)
[2017-10-07] MEDS: THIAMINE HCL 100 MG TABLET (FP) PO SCH (21:57)
[2017-10-07] MEDS: LIDOCAINE PATCH REMOVAL MC SCH (21:57)
[2017-10-08] MEDS ORDERED: METHADONE HCL 40 MG DISPERSABLE TABLET ONE (05:25)
[2017-10-08] MEDS ORDERED: METHADONE HCL 10 MG TABLET ONE (05:25)
[2017-10-08] MEDS: METHADONE 40 MG, METHADONE 20 MG PO SCH (06:21)
[2017-10-08] MEDS: GABAPENTIN 100 MG CAPSULE (FP) PO SCH ×3 (06:21→21:35)
[2017-10-08] MEDS: NAPROXEN 500 MG TABLET (FP) PO SCH ×2 (09:58→21:35)
[2017-10-08] MEDS: ESCITALOPRAM OXALATE 10 MG TABLET (FP) PO SCH (09:58)
[2017-10-08] MEDS: PRENATAL VITAMINS W/ FOLIC ACID TABLET (FP) PO SCH (09:58)
[2017-10-08] MEDS: LIDOCAINE 5% TOPICAL PATCH TP SCH (09:58)
[2017-10-08] MEDS: NICOTINE 21 MG/24 HOURS TOPICAL PATCH TD SCH (09:59)
[2017-10-08] MEDS: ACETAMINOPHEN 325 MG TABLET (FP) PO PRN (13:30)
[2017-10-08] MEDS: THIAMINE HCL 100 MG TABLET (FP) PO SCH (21:35)
[2017-10-08] MEDS: LIDOCAINE PATCH REMOVAL MC SCH (21:36)
[2017-10-08] MEDS: hydrOXYzine PAMOATE 50 MG CAPSULE (FP) PO PRN (21:37)
[2017-10-09] MEDS ORDERED: METHADONE HCL 40 MG DISPERSABLE TABLET ONE (03:53)
[2017-10-09] MEDS ORDERED: METHADONE HCL 10 MG TABLET ONE (03:53)
[2017-10-09] MEDS: METHADONE 40 MG, METHADONE 20 MG PO SCH (06:29)
[2017-10-09] MEDS: GABAPENTIN 100 MG CAPSULE (FP) PO SCH ×3 (06:29→21:57)
[2017-10-09] MEDS: LIDOCAINE 5% TOPICAL PATCH TP SCH ×2 (10:04→17:36)
[2017-10-09] MEDS: NAPROXEN 500 MG TABLET (FP) PO SCH ×2 (10:04→21:57)
[2017-10-09] MEDS: ESCITALOPRAM OXALATE 10 MG TABLET (FP) PO SCH (10:04)
[2017-10-09] MEDS: NICOTINE 21 MG/24 HOURS TOPICAL PATCH TD SCH (10:04)
[2017-10-09] MEDS: PRENATAL VITAMINS W/ FOLIC ACID TABLET (FP) PO SCH (10:04)
--- NOTE | 2017-10-09 15:15 | PN ---
S Progress Note Note: Patient c/o bilateral knee pain. Patient AOx3,in no apparent distress, ambulates whit a cane with slow and steady gait. Pain present on both knees. Plan : Continue Naproxen 500mg BID Lidocaine patch, apply to each knee qd Continue to monitor
[2017-10-09] MEDS: CYCLOBENZAPRINE HCL 10 MG TABLET (FP) PO PRN (19:24)
[2017-10-09] MEDS: hydrOXYzine PAMOATE 50 MG CAPSULE (FP) PO PRN (21:57)
[2017-10-09] MEDS: THIAMINE HCL 100 MG TABLET (FP) PO SCH (21:57)
[2017-10-09] MEDS: LIDOCAINE PATCH REMOVAL MC SCH ×2 (21:58→21:59)
[2017-10-10] MEDS ORDERED: METHADONE HCL 10 MG TABLET ONE (04:08)
[2017-10-10] MEDS ORDERED: METHADONE HCL 40 MG DISPERSABLE TABLET ONE (04:08)
[2017-10-10] MEDS: GABAPENTIN 100 MG CAPSULE (FP) PO SCH ×3 (05:59→21:35)
[2017-10-10] MEDS: METHADONE 40 MG, METHADONE 20 MG PO SCH (05:59)
[2017-10-10] MEDS: ESCITALOPRAM OXALATE 10 MG TABLET (FP) PO SCH (10:03)
[2017-10-10] MEDS: PRENATAL VITAMINS W/ FOLIC ACID TABLET (FP) PO SCH (10:03)
[2017-10-10] MEDS: LIDOCAINE 5% TOPICAL PATCH TP SCH ×2 (10:03)
[2017-10-10] MEDS: NAPROXEN 500 MG TABLET (FP) PO SCH ×2 (10:03→21:35)
[2017-10-10] MEDS: NICOTINE 21 MG/24 HOURS TOPICAL PATCH TD SCH (10:03)
[2017-10-10] MEDS: hydrOXYzine PAMOATE 50 MG CAPSULE (FP) PO PRN (21:35)
[2017-10-10] MEDS: CYCLOBENZAPRINE HCL 10 MG TABLET (FP) PO PRN (21:35)
[2017-10-10] MEDS: THIAMINE HCL 100 MG TABLET (FP) PO SCH (21:35)
[2017-10-10] MEDS: LIDOCAINE PATCH REMOVAL MC SCH ×2 (21:36→21:37)
[2017-10-11] MEDS ORDERED: METHADONE HCL 10 MG TABLET ONE (04:36)
[2017-10-11] MEDS ORDERED: METHADONE HCL 40 MG DISPERSABLE TABLET ONE (04:37)
[2017-10-11] MEDS: GABAPENTIN 100 MG CAPSULE (FP) PO SCH ×3 (06:24→21:21)
[2017-10-11] MEDS: METHADONE 40 MG, METHADONE 20 MG PO SCH (06:24)
[2017-10-11] MEDS: LIDOCAINE 5% TOPICAL PATCH TP SCH ×2 (10:41→10:42)
[2017-10-11] MEDS: PRENATAL VITAMINS W/ FOLIC ACID TABLET (FP) PO SCH (10:41)
[2017-10-11] MEDS: ESCITALOPRAM OXALATE 10 MG TABLET (FP) PO SCH (10:41)
[2017-10-11] MEDS: NICOTINE 21 MG/24 HOURS TOPICAL PATCH TD SCH (10:41)
[2017-10-11] MEDS: NAPROXEN 500 MG TABLET (FP) PO SCH ×2 (10:41→21:21)
[2017-10-11] MEDS: CYCLOBENZAPRINE HCL 10 MG TABLET (FP) PO PRN (21:21)
[2017-10-11] MEDS: hydrOXYzine PAMOATE 50 MG CAPSULE (FP) PO PRN (21:21)
[2017-10-11] MEDS: THIAMINE HCL 100 MG TABLET (FP) PO SCH (21:21)
[2017-10-11] MEDS: LIDOCAINE PATCH REMOVAL MC SCH ×2 (21:22)
[2017-10-12] MEDS ORDERED: METHADONE HCL 10 MG TABLET ONE (04:40)
[2017-10-12] MEDS ORDERED: METHADONE HCL 40 MG DISPERSABLE TABLET ONE (04:40)
[2017-10-12] MEDS: GABAPENTIN 100 MG CAPSULE (FP) PO SCH ×3 (06:06→22:15)
[2017-10-12] MEDS: METHADONE 40 MG, METHADONE 20 MG PO SCH (06:06)
[2017-10-12] MEDS: NAPROXEN 500 MG TABLET (FP) PO SCH ×2 (09:53→22:15)
[2017-10-12] MEDS: ESCITALOPRAM OXALATE 10 MG TABLET (FP) PO SCH (09:53)
[2017-10-12] MEDS: NICOTINE 21 MG/24 HOURS TOPICAL PATCH TD SCH (09:54)
[2017-10-12] MEDS: LIDOCAINE 5% TOPICAL PATCH TP SCH ×2 (09:54)
[2017-10-12] MEDS: PRENATAL VITAMINS W/ FOLIC ACID TABLET (FP) PO SCH (09:54)
[2017-10-12] MEDS: LIDOCAINE PATCH REMOVAL MC SCH ×2 (22:14)
[2017-10-12] MEDS: THIAMINE HCL 100 MG TABLET (FP) PO SCH (22:15)
[2017-10-12] MEDS: CYCLOBENZAPRINE HCL 10 MG TABLET (FP) PO PRN (22:15)
[2017-10-13] MEDS ORDERED: METHADONE HCL 10 MG TABLET ONE (04:14)
[2017-10-13] MEDS ORDERED: METHADONE HCL 40 MG DISPERSABLE TABLET ONE (04:14)
[2017-10-13] MEDS: METHADONE 40 MG, METHADONE 20 MG PO SCH (07:42)
[2017-10-13] MEDS: GABAPENTIN 100 MG CAPSULE (FP) PO SCH ×3 (07:42→21:37)
[2017-10-13] MEDS: PRENATAL VITAMINS W/ FOLIC ACID TABLET (FP) PO SCH (10:20)
[2017-10-13] MEDS: NAPROXEN 500 MG TABLET (FP) PO SCH ×2 (10:20→21:37)
[2017-10-13] MEDS: LIDOCAINE 5% TOPICAL PATCH TP SCH ×2 (10:20)
[2017-10-13] MEDS: ESCITALOPRAM OXALATE 10 MG TABLET (FP) PO SCH (10:20)
[2017-10-13] MEDS: NICOTINE 21 MG/24 HOURS TOPICAL PATCH TD SCH (10:20)
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
[2017-10-13] MEDS: hydrOXYzine PAMOATE 50 MG CAPSULE (FP) PO PRN (21:37)
[2017-10-13] MEDS: risperiDONE 1 MG TABLET (FP) PO SCH (21:37)
[2017-10-13] MEDS: CYCLOBENZAPRINE HCL 10 MG TABLET (FP) PO PRN (21:37)
[2017-10-13] MEDS: THIAMINE HCL 100 MG TABLET (FP) PO SCH (21:37)
[2017-10-13] MEDS: LIDOCAINE PATCH REMOVAL MC SCH ×2 (21:38→21:39)
[2017-10-14] MEDS ORDERED: METHADONE HCL 10 MG TABLET ONE (04:13)
[2017-10-14] MEDS ORDERED: METHADONE HCL 40 MG DISPERSABLE TABLET ONE (04:14)
[2017-10-14] MEDS: METHADONE 40 MG, METHADONE 20 MG PO SCH (05:58)
[2017-10-14] MEDS: GABAPENTIN 100 MG CAPSULE (FP) PO SCH ×3 (05:58→21:18)
[2017-10-14] MEDS: NAPROXEN 500 MG TABLET (FP) PO SCH ×2 (09:49→21:17)
[2017-10-14] MEDS: ESCITALOPRAM OXALATE 10 MG TABLET (FP) PO SCH (09:49)
[2017-10-14] MEDS: PRENATAL VITAMINS W/ FOLIC ACID TABLET (FP) PO SCH (09:49)
[2017-10-14] MEDS: NICOTINE 21 MG/24 HOURS TOPICAL PATCH TD SCH (09:50)
[2017-10-14] MEDS: LIDOCAINE 5% TOPICAL PATCH TP SCH ×2 (09:50)
[2017-10-14] MEDS: THIAMINE HCL 100 MG TABLET (FP) PO SCH (21:17)
[2017-10-14] MEDS: hydrOXYzine PAMOATE 50 MG CAPSULE (FP) PO PRN (21:18)
[2017-10-14] MEDS: CYCLOBENZAPRINE HCL 10 MG TABLET (FP) PO PRN (21:18)
[2017-10-14] MEDS: risperiDONE 1 MG TABLET (FP) PO SCH (21:18)
[2017-10-14] MEDS: LIDOCAINE PATCH REMOVAL MC SCH ×2 (21:39→21:40)
[2017-10-15] MEDS ORDERED: METHADONE HCL 10 MG TABLET ONE (04:14)
[2017-10-15] MEDS ORDERED: METHADONE HCL 40 MG DISPERSABLE TABLET ONE (04:14)
[2017-10-15] MEDS: GABAPENTIN 100 MG CAPSULE (FP) PO SCH ×3 (06:06→22:07)
[2017-10-15] MEDS: METHADONE 40 MG, METHADONE 20 MG PO SCH (06:06)
[2017-10-15] MEDS: NICOTINE 21 MG/24 HOURS TOPICAL PATCH TD SCH (09:53)
[2017-10-15] MEDS: NAPROXEN 500 MG TABLET (FP) PO SCH ×2 (09:53→22:07)
[2017-10-15] MEDS: ESCITALOPRAM OXALATE 10 MG TABLET (FP) PO SCH (09:54)
[2017-10-15] MEDS: LIDOCAINE 5% TOPICAL PATCH TP SCH ×2 (09:54)
[2017-10-15] MEDS: PRENATAL VITAMINS W/ FOLIC ACID TABLET (FP) PO SCH (09:54)
[2017-10-15] MEDS: THIAMINE HCL 100 MG TABLET (FP) PO SCH (22:07)
[2017-10-15] MEDS: risperiDONE 1 MG TABLET (FP) PO SCH (22:07)
[2017-10-15] MEDS: hydrOXYzine PAMOATE 50 MG CAPSULE (FP) PO PRN (22:09)
[2017-10-15] MEDS: LIDOCAINE PATCH REMOVAL MC SCH ×2 (22:56→22:57)
[2017-10-16] MEDS ORDERED: METHADONE HCL 10 MG TABLET ONE (04:17)
[2017-10-16] MEDS ORDERED: METHADONE HCL 40 MG DISPERSABLE TABLET ONE (04:17)
[2017-10-16] MEDS: METHADONE 40 MG, METHADONE 20 MG PO SCH (06:05)
[2017-10-16] MEDS: GABAPENTIN 100 MG CAPSULE (FP) PO SCH ×3 (06:05→21:18)
[2017-10-16] MEDS: NAPROXEN 500 MG TABLET (FP) PO SCH ×2 (10:07→21:18)
[2017-10-16] MEDS: ESCITALOPRAM OXALATE 10 MG TABLET (FP) PO SCH (10:07)
[2017-10-16] MEDS: NICOTINE 21 MG/24 HOURS TOPICAL PATCH TD SCH (10:07)
[2017-10-16] MEDS: PRENATAL VITAMINS W/ FOLIC ACID TABLET (FP) PO SCH (10:07)
[2017-10-16] MEDS: LIDOCAINE 5% TOPICAL PATCH TP SCH ×2 (10:08)
[2017-10-16] MEDS: THIAMINE HCL 100 MG TABLET (FP) PO SCH (21:17)
[2017-10-16] MEDS: risperiDONE 1 MG TABLET (FP) PO SCH (21:18)
[2017-10-16] MEDS: hydrOXYzine PAMOATE 50 MG CAPSULE (FP) PO PRN (21:18)
[2017-10-16] MEDS: LIDOCAINE PATCH REMOVAL MC SCH ×2 (21:57)
[2017-10-17] MEDS ORDERED: METHADONE HCL 10 MG TABLET ONE (04:25)
[2017-10-17] MEDS ORDERED: METHADONE HCL 40 MG DISPERSABLE TABLET ONE (04:26)
[2017-10-17] MEDS: GABAPENTIN 100 MG CAPSULE (FP) PO SCH ×3 (06:43→21:42)
[2017-10-17] MEDS: METHADONE 40 MG, METHADONE 20 MG PO SCH (06:43)
[2017-10-17] MEDS: ESCITALOPRAM OXALATE 10 MG TABLET (FP) PO SCH (09:41)
[2017-10-17] MEDS: PRENATAL VITAMINS W/ FOLIC ACID TABLET (FP) PO SCH (09:41)
[2017-10-17] MEDS: NAPROXEN 500 MG TABLET (FP) PO SCH ×2 (09:41→21:42)
[2017-10-17] MEDS: NICOTINE 21 MG/24 HOURS TOPICAL PATCH TD SCH (09:41)
[2017-10-17] MEDS: LIDOCAINE 5% TOPICAL PATCH TP SCH ×2 (09:42)
[2017-10-17] MEDS: risperiDONE 1 MG TABLET (FP) PO SCH (21:42)
[2017-10-17] MEDS: THIAMINE HCL 100 MG TABLET (FP) PO SCH (21:42)
[2017-10-17] MEDS: LIDOCAINE PATCH REMOVAL MC SCH ×2 (21:42)
[2017-10-18] MEDS ORDERED: METHADONE HCL 40 MG DISPERSABLE TABLET ONE (03:48)
[2017-10-18] MEDS ORDERED: METHADONE HCL 10 MG TABLET ONE (03:48)
[2017-10-18] MEDS: METHADONE 40 MG, METHADONE 20 MG PO SCH (06:27)
[2017-10-18] MEDS: GABAPENTIN 100 MG CAPSULE (FP) PO SCH ×3 (06:27→21:22)
[2017-10-18] MEDS: NAPROXEN 500 MG TABLET (FP) PO SCH ×2 (10:01→21:22)
[2017-10-18] MEDS: PRENATAL VITAMINS W/ FOLIC ACID TABLET (FP) PO SCH (10:01)
[2017-10-18] MEDS: NICOTINE 21 MG/24 HOURS TOPICAL PATCH TD SCH (10:01)
[2017-10-18] MEDS: LIDOCAINE 5% TOPICAL PATCH TP SCH ×2 (10:01→10:02)
[2017-10-18] MEDS: ESCITALOPRAM OXALATE 10 MG TABLET (FP) PO SCH (10:01)
[2017-10-18] MEDS: risperiDONE 1 MG TABLET (FP) PO SCH (21:22)
[2017-10-18] MEDS: CYCLOBENZAPRINE HCL 10 MG TABLET (FP) PO PRN (21:22)
[2017-10-18] MEDS: THIAMINE HCL 100 MG TABLET (FP) PO SCH (21:22)
[2017-10-18] MEDS: LIDOCAINE PATCH REMOVAL MC SCH ×2 (21:23→21:24)
[2017-10-19] MEDS ORDERED: METHADONE HCL 10 MG TABLET ONE (04:00)
[2017-10-19] MEDS ORDERED: METHADONE HCL 40 MG DISPERSABLE TABLET ONE (04:00)
[2017-10-19] MEDS: METHADONE 40 MG, METHADONE 20 MG PO SCH (06:39)
[2017-10-19] MEDS: GABAPENTIN 100 MG CAPSULE (FP) PO SCH (06:39)
[2017-10-19] MEDS: NAPROXEN 500 MG TABLET (FP) PO SCH ×2 (09:58→21:45)
[2017-10-19] MEDS: PRENATAL VITAMINS W/ FOLIC ACID TABLET (FP) PO SCH (09:58)
[2017-10-19] MEDS: ESCITALOPRAM OXALATE 10 MG TABLET (FP) PO SCH (09:58)
[2017-10-19] MEDS: NICOTINE 21 MG/24 HOURS TOPICAL PATCH TD SCH (09:58)
[2017-10-19] MEDS: LIDOCAINE 5% TOPICAL PATCH TP SCH ×2 (09:59→10:35)
[2017-10-19] MEDS: risperiDONE 1 MG TABLET (FP) PO SCH (21:45)
[2017-10-19] MEDS: THIAMINE HCL 100 MG TABLET (FP) PO SCH (21:45)
[2017-10-19] MEDS: LIDOCAINE PATCH REMOVAL MC SCH ×2 (21:45→21:46)
[2017-10-20] MEDS ORDERED: METHADONE HCL 40 MG DISPERSABLE TABLET ONE (04:16)
[2017-10-20] MEDS ORDERED: METHADONE HCL 10 MG TABLET ONE (04:16)
[2017-10-20] MEDS: METHADONE 40 MG, METHADONE 20 MG PO SCH (06:49)
[2017-10-20] MEDS: ESCITALOPRAM OXALATE 10 MG TABLET (FP) PO SCH (09:48)
[2017-10-20] MEDS: LIDOCAINE 5% TOPICAL PATCH TP SCH ×2 (09:48→09:49)
[2017-10-20] MEDS: NAPROXEN 500 MG TABLET (FP) PO SCH ×2 (09:48→21:31)
[2017-10-20] MEDS: NICOTINE 21 MG/24 HOURS TOPICAL PATCH TD SCH (09:48)
[2017-10-20] MEDS: PRENATAL VITAMINS W/ FOLIC ACID TABLET (FP) PO SCH (09:48)
[2017-10-20] MEDS: CYCLOBENZAPRINE HCL 10 MG TABLET (FP) PO PRN (21:31)
[2017-10-20] MEDS: LIDOCAINE PATCH REMOVAL MC SCH ×2 (21:31→21:32)
[2017-10-20] MEDS: risperiDONE 1 MG TABLET (FP) PO SCH (21:31)
[2017-10-20] MEDS: THIAMINE HCL 100 MG TABLET (FP) PO SCH (21:31)
[2017-10-21] MEDS ORDERED: METHADONE HCL 10 MG TABLET ONE (03:23)
[2017-10-21] MEDS ORDERED: METHADONE HCL 40 MG DISPERSABLE TABLET ONE (03:23)
[2017-10-21] MEDS: METHADONE 40 MG, METHADONE 20 MG PO SCH (06:34)
[2017-10-21] MEDS: NAPROXEN 500 MG TABLET (FP) PO SCH ×2 (09:49→21:33)
[2017-10-21] MEDS: ESCITALOPRAM OXALATE 10 MG TABLET (FP) PO SCH (09:49)
[2017-10-21] MEDS: NICOTINE 21 MG/24 HOURS TOPICAL PATCH TD SCH (09:49)
[2017-10-21] MEDS: PRENATAL VITAMINS W/ FOLIC ACID TABLET (FP) PO SCH (09:49)
[2017-10-21] MEDS: LIDOCAINE 5% TOPICAL PATCH TP SCH ×2 (09:50)
[2017-10-21] MEDS: ACETAMINOPHEN 325 MG TABLET (FP) PO PRN (11:58)
[2017-10-21] MEDS: risperiDONE 1 MG TABLET (FP) PO SCH (21:33)
[2017-10-21] MEDS: THIAMINE HCL 100 MG TABLET (FP) PO SCH (21:33)
[2017-10-21] MEDS: CYCLOBENZAPRINE HCL 10 MG TABLET (FP) PO PRN (21:35)
[2017-10-21] MEDS: LIDOCAINE PATCH REMOVAL MC SCH ×2 (22:12)
[2017-10-22] MEDS ORDERED: METHADONE HCL 10 MG TABLET ONE (05:06)
[2017-10-22] MEDS ORDERED: METHADONE HCL 40 MG DISPERSABLE TABLET ONE (05:06)
[2017-10-22] MEDS: METHADONE 40 MG, METHADONE 20 MG PO SCH (06:11)
[2017-10-22] MEDS: ESCITALOPRAM OXALATE 10 MG TABLET (FP) PO SCH (09:38)
[2017-10-22] MEDS: NAPROXEN 500 MG TABLET (FP) PO SCH ×2 (09:38→21:33)
[2017-10-22] MEDS: NICOTINE 21 MG/24 HOURS TOPICAL PATCH TD SCH (09:38)
[2017-10-22] MEDS: PRENATAL VITAMINS W/ FOLIC ACID TABLET (FP) PO SCH (09:39)
[2017-10-22] MEDS: LIDOCAINE 5% TOPICAL PATCH TP SCH ×2 (09:39)
[2017-10-22] MEDS ORDERED: METHADONE HCL 40 MG DISPERSABLE TABLET PO SCH (11:59)
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
[2017-10-22] MEDS: BACLOFEN 10 MG TABLET (FP) PO SCH ×2 (13:34→21:34)
[2017-10-22] MEDS: GABAPENTIN 100 MG CAPSULE (FP) PO SCH ×2 (13:34→21:33)
[2017-10-22] MEDS ORDERED: PT OWN MED DRAWER 7, Y5N ONE (20:08)
[2017-10-22] MEDS: risperiDONE 1 MG TABLET (FP) PO SCH (21:33)
[2017-10-22] MEDS: LIDOCAINE PATCH REMOVAL MC SCH ×2 (21:34)
[2017-10-22] MEDS: THIAMINE HCL 100 MG TABLET (FP) PO SCH (21:38)
[2017-10-22] MEDS ORDERED: AMITRIPTYLINE HCL 50 MG TABLET PO SCH (22:00)
[2017-10-23] MEDS ORDERED: METHADONE HCL 10 MG TABLET ONE (05:49)
[2017-10-23] MEDS ORDERED: METHADONE HCL 40 MG DISPERSABLE TABLET ONE (05:49)
[2017-10-23] MEDS: BACLOFEN 10 MG TABLET (FP) PO SCH ×3 (06:21→21:21)
[2017-10-23] MEDS: GABAPENTIN 100 MG CAPSULE (FP) PO SCH ×3 (06:21→21:21)
[2017-10-23] MEDS: METHADONE 40 MG, METHADONE 30 MG PO SCH (06:22)
[2017-10-23] MEDS: NAPROXEN 500 MG TABLET (FP) PO SCH ×2 (09:55→21:21)
[2017-10-23] MEDS: PRENATAL VITAMINS W/ FOLIC ACID TABLET (FP) PO SCH (09:55)
[2017-10-23] MEDS: NICOTINE 21 MG/24 HOURS TOPICAL PATCH TD SCH (09:55)
[2017-10-23] MEDS: LIDOCAINE 5% TOPICAL PATCH TP SCH ×2 (09:56)
[2017-10-23] MEDS: ESCITALOPRAM OXALATE 10 MG TABLET (FP) PO SCH (09:56)
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
[2017-10-23] MEDS: risperiDONE 1 MG TABLET (FP) PO SCH (21:21)
[2017-10-23] MEDS: THIAMINE HCL 100 MG TABLET (FP) PO SCH (21:21)
[2017-10-23] MEDS: LIDOCAINE PATCH REMOVAL MC SCH ×2 (21:22)
[2017-10-23] MEDS: AMITRIPTYLINE HCL 25 MG TABLET (FP) PO SCH (21:49)
[2017-10-24] MEDS ORDERED: METHADONE HCL 10 MG TABLET ONE (03:42)
[2017-10-24] MEDS ORDERED: METHADONE HCL 40 MG DISPERSABLE TABLET ONE (03:42)
[2017-10-24] MEDS: METHADONE 40 MG, METHADONE 30 MG PO SCH (06:42)
[2017-10-24] MEDS: BACLOFEN 10 MG TABLET (FP) PO SCH ×3 (06:42→21:29)
[2017-10-24] MEDS: GABAPENTIN 100 MG CAPSULE (FP) PO SCH ×3 (06:49→21:29)
[2017-10-24 06:50] VITALS: PULSE 91
--- NOTE | 2017-10-24 08:59 | PN ---
Psychiatric Progress Note Vital Signs: Vital Signs Period Temp Pulse Resp BP Sys/Bella Pulse Ox Last 24 Hr 97.9 F 91 16-18 119/71 Date of Session: 10/24/17 Chief Complaint:: Discharge Note HPI: Patient addressing Alcohol Dependence comorbid with Opoid Dependence on Agonist Therapy, Nicotine Dependence, MDD, PTSD, Alcohol-induced Anxiety Disorder and Alcohol-induced Sleep Disorder ROS: Gastritis, Hep C Current Medications: Active Medications Generic Name Dose Route Start Last Admin Trade Name Freq PRN Reason Stop Dose Admin Acetaminophen 650 mg 09/22/17 19:36 10/21/17 11:58 Tylenol - PO 650 mg Q4H PRN Administration FEVER Al Hydroxide/Mg Hydroxide 30 ml 09/22/17 19:36 Mylanta Oral Suspension - PO Q6H PRN DYSPEPSIA Amitriptyline HCl 50 mg 10/23/17 22:00 10/23/17 21:49 Elavil - PO 50 mg HS NICANOR Administration Baclofen 10 mg 10/22/17 14:00 10/24/17 06:42 Lioresal - PO 10 mg TID NICANOR Administration Escitalopram Oxalate 10 mg 09/26/17 10:00 10/23/17 09:56 Lexapro - PO 10 mg DAILY NICANOR Administration Eucalyptus/Menthol/Phenol/Sorbitol 1 each 09/22/17 19:36 09/23/17 09:28 Cepastat Lozenge - MM 1 each Q4H PRN Administration SORE THROAT Gabapentin 100 mg 10/22/17 14:00 10/24/17 06:49 Neurontin - PO 100 mg TID NICANOR Administration Guaifenesin 10 ml 09/22/17 19:36 10/06/17 06:25 Robitussin Dm - PO 10 ml Q6H PRN Administration COUGH Lidocaine 1 patch 09/25/17 15:15 10/23/17 09:56 Lidoderm Patch - TP 1 patch DAILY NICANOR Administration Lidocaine 1 patch 10/09/17 15:15 10/23/17 09:56 Lidoderm Patch - TP 1 patch DAILY NICANOR Administration Magnesium Citrate 300 ml 09/22/17 19:36 Citroma - PO Q48H PRN CONSTIPATION Magnesium Hydroxide 30 ml 09/22/17 19:36 Milk Of Magnesia - PO DAILY PRN CONSTIPATION Methadone HCl 40 mg/ Methadone 70 mg 10/23/17 06:00 10/24/17 06:42 HCl 30 mg PO 70 mg DAILY@0600 NICANOR Administration Miscellaneous 1 each 09/25/17 22:00 10/23/17 21:22 Lidoderm Patch Removal MC 1 each DAILY@2200 NICANOR Administration Miscellaneous 1 each 10/09/17 22:00 10/23/17 21:22 Lidoderm Patch Removal MC 1 each DAILY@2200 NICANOR Administration Naproxen 500 mg 09/22/17 22:00 10/23/17 21:21 Naprosyn - PO 500 mg BID NICANOR Administration Nicotine 21 mg 09/23/17 10:00 10/23/17 09:55 Nicoderm Patch - TD 21 mg DAILY NICANOR Administration Multivit/Folic Acid/Iron 1 tab 09/23/17 10:00 10/23/17 09:55 Vitamins (Sjr) - PO 1 tab DAILY NICANOR Administration Pseudoephedrine/Triprolidine 1 combo 09/22/17 19:36 Actifed - PO TID PRN NASAL CONGESTION Risperidone 1 mg 10/13/17 22:00 10/23/17 21:21 Risperdal - PO 1 mg HS NICANOR Administration Thiamine HCl 100 mg 09/22/17 22:00 10/23/17 21:21 Vitamin B1 - PO 100 mg HS NICANOR Administration Trimethobenzamide HCl 200 mg 09/25/17 22:40 09/25/17 23:10 Tigan Injection - IM 200 mg Q8H PRN Administration NAUSEA Current Side Effect: No Lab tests ordered: Yes Lab tests reviewed: Yes Provider note:: Patient will complete this program on 10/25/17. 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 Told filing writer that from his participation in this program, he has learned to keep the focus on himself and to take it one day at a time. He responded well to Lexapro 10 mg po daily and Belsomra 10 mg po HS prn for insomnia.Script for 30 days supply of Lexapro is electronically transmitted to [facility] at [address] [place] [address]. He is stable for discharge on 10/25/17 Total face to face time:: 35 Mental Status Exam - Mental Status Exam Alert and Oriented to: Time, Place, Person Cognitive Function: Fair Patient Appearance: Well Groomed Mood: Hopeful, Euthymic Affect: Appropriate Patient Behavior: Cooperative Speech Pattern: Clear Voice Loudness: Normal Thought Process: Intact, Goal Oriented Thought Disorder: Not Present Hallucinations: Denies Suicidal Ideation: Denies Homicidal Ideation: Denies Insight/Judgement: Fair Sleep: Fair Appetite: Good Muscle strength/Tone: Normal Gait/Station: Normal Psychiatric Treatment Plan - Problem List (1) Alcohol dependence Current Visit: Yes Qualifiers: Substance use status: uncomplicated Qualified Code(s): F10.20 - Alcohol dependence, uncomplicated (2) Nicotine dependence Current Visit: No (3) MDD (major depressive disorder) Current Visit: No Comment: self reports. Will restart patient on lexapro 10mg. (4) Post traumatic stress disorder (PTSD) Current Visit: No (5) Alcohol-induced anxiety disorder Current Visit: Yes (6) Alcohol-induced sleep disorder Current Visit: Yes (7) History of gastritis Current Visit: No (8) History of hepatitis C Current Visit: No (9) Opioid dependence on agonist therapy Current Visit: Yes Initial treatment plan: Patient will be discharged tomorrow and referred to [facility] for terminal operations manager residential treatment
[2017-10-24] MEDS: NICOTINE 21 MG/24 HOURS TOPICAL PATCH TD SCH (10:37)
[2017-10-24] MEDS: LIDOCAINE 5% TOPICAL PATCH TP SCH ×2 (10:37→10:39)
[2017-10-24] MEDS: NAPROXEN 500 MG TABLET (FP) PO SCH ×2 (10:37→21:29)
[2017-10-24] MEDS: ESCITALOPRAM OXALATE 10 MG TABLET (FP) PO SCH (10:37)
[2017-10-24] MEDS: PRENATAL VITAMINS W/ FOLIC ACID TABLET (FP) PO SCH (10:37)
[2017-10-24] MEDS: AMITRIPTYLINE HCL 25 MG TABLET (FP) PO SCH (21:29)
[2017-10-24] MEDS: risperiDONE 1 MG TABLET (FP) PO SCH (21:29)
[2017-10-24] MEDS: THIAMINE HCL 100 MG TABLET (FP) PO SCH (21:29)
[2017-10-24] MEDS: LIDOCAINE PATCH REMOVAL MC SCH ×2 (21:30→21:31)
[2017-10-25] MEDS ORDERED: METHADONE HCL 10 MG TABLET ONE (04:55)
[2017-10-25] MEDS ORDERED: METHADONE HCL 40 MG DISPERSABLE TABLET ONE (04:55)
[2017-10-25] MEDS: METHADONE 40 MG, METHADONE 30 MG PO SCH (07:03)
[2017-10-25] MEDS: GABAPENTIN 100 MG CAPSULE (FP) PO SCH (07:03)
[2017-10-25] MEDS: BACLOFEN 10 MG TABLET (FP) PO SCH (07:03)
[2017-10-25 07:35] VITALS: BP 128/75; TEMP 95.5
[2017-10-25] MEDS: ESCITALOPRAM OXALATE 10 MG TABLET (FP) PO SCH (10:16)
[2017-10-25] MEDS: LIDOCAINE 5% TOPICAL PATCH TP SCH ×2 (10:16)
[2017-10-25] MEDS: NAPROXEN 500 MG TABLET (FP) PO SCH (10:16)
[2017-10-25] MEDS: PRENATAL VITAMINS W/ FOLIC ACID TABLET (FP) PO SCH (10:16)
[2017-10-25] MEDS: NICOTINE 21 MG/24 HOURS TOPICAL PATCH TD SCH (10:17)
== END 2017-10-25 11:25 | disposition home or self-care (01) | DRG 772 ==
LOC: YASAS 18:19 → Y3W 18:20
PROVIDERS: ADMIT Psychiatry & Neurology Psychiatry; ATTEND Psychiatry & Neurology Psychiatry
PROC: HZ42ZZZ Group Counseling for Substance Abuse Treatment, Cognitive-Behavioral (ICD-10-PCS; principal; 2017-09-22)
DX: F10.24 Alcohol dependence with alcohol-induced mood disorder (principal); F10.282 Alcohol dependence with alcohol-induced sleep disorder; F11.20 Opioid dependence, uncomplicated; F17.210 Nicotine dependence, cigarettes, uncomplicated; F33.9 Major depressive disorder, recurrent, unspecified; F43.10 Post-traumatic stress disorder, unspecified; B18.2 Chronic viral hepatitis C; M25.561 Pain in right knee; M25.562 Pain in left knee; K74.60 Unspecified cirrhosis of liver; G89.21 Chronic pain due to trauma; Z59.0 Homelessness
CPT/HCPCS: J0475; J2794

== ENCOUNTER 2018-02-08 11:59 | Inpatient (IN) | payer OTHER ==
[2018-02-08 12:38] VITALS: BMI 26.4
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
[2018-02-08] MEDS ORDERED: ACETAMINOPHEN 325 MG TABLET (FP) PO PRN (15:55)
[2018-02-08] MEDS ORDERED: chlordiazePOXIDE HCL 25 MG CAPSULE PO PRN (15:55)
[2018-02-08] MEDS ORDERED: MAGNESIUM HYDROX 2400MG/30ML ORAL SUSPENSION 30 ML CUP PO PRN (15:55)
[2018-02-08] MEDS ORDERED: guaiFENesin/D-METHORPHAN HB 10 ML UNIT-DOSE CUPS PO PRN (15:55)
[2018-02-08] MEDS ORDERED: LOPERAMIDE HCL 2 MG CAPSULE PO PRN (15:55)
[2018-02-08] MEDS ORDERED: MENTHOL/PHENOL 1 EACH UD MM PRN (15:55)
[2018-02-08] MEDS ORDERED: NICOTINE POLACRILEX 4 MG GUM BC PRN (15:55)
[2018-02-08] MEDS ORDERED: IBUPROFEN 400 MG TABLET (FP) PO PRN (15:55)
[2018-02-08] MEDS ORDERED: P-EPHED 60MG/TRIPROLIDI 2.5MG TABLET PO PRN (15:55)
[2018-02-08] MEDS ORDERED: MAGNESIUM CITRATE 300 ML BOTTLE PO PRN (15:55)
[2018-02-08] MEDS ORDERED: MAG HYDROX/AL HYDROX/SIMETH 30 ML UNIT-DOSE CUP PO PRN (15:55)
[2018-02-08] MEDS: NICOTINE 21 MG/24 HOURS TOPICAL PATCH TD SCH (17:46)
[2018-02-08] MEDS: chlordiazePOXIDE HCL 25 MG CAPSULE PO SCH ×2 (17:48→22:13)
--- NOTE | 2018-02-08 17:52 | PN ---
[facility] Progress Note Note: Patient with abnormal EKG, asymtomatic. Repeat EKG 02/09/18 at 9AM
[2018-02-08] MEDS ORDERED: THIAMINE HCL 100 MG TABLET (FP) PO SCH (22:00)
[2018-02-08] MEDS ORDERED: MELATONIN 5 MG TABLETS PO PRN (22:00)
[2018-02-08] MEDS: levETIRAcetam 500 MG TABLET (FP) PO SCH (22:13)
[2018-02-08] MEDS: RANITIDINE HCL 150 MG TABLET (FP) PO SCH (22:13)
[2018-02-08 22:36] LABS: URINE APPEARANCE CLEAR; URINE BILIRUBIN NEGATIVE (<2.0 mg/dL); URINE BLOOD NEGATIVE (NEGATIVE); URINE COLOR LTYELLOW; URINE GLUCOSE (UA) NEGATIVE (NEGATIVE); URINE KETONE NEGATIVE (NEGATIVE); URINE LEUK ESTERASE NEGATIVE (NEGATIVE); URINE NITRITE NEGATIVE (NEGATIVE); URINE PROTEIN NEGATIVE (NEGATIVE); URINE UROBILINOGEN NEGATIVE mg/dL (0.2-1.0)
[2018-02-09] MEDS: chlordiazePOXIDE HCL 25 MG CAPSULE PO SCH ×2 (05:34→10:09)
--- NOTE | 2018-02-09 09:46 | EKG ---
Test Reason : Blood Pressure : / mmHG Vent. Rate : 078 BPM Atrial Rate : 078 BPM P-R Int : 126 ms QRS Dur : 088 ms QT Int : 414 ms P-R-T Axes : 031 066 064 degrees QTc Int : 471 ms NORMAL SINUS RHYTHM NORMAL ECG WHEN COMPARED WITH ECG OF 08-FEB-2018 17:34, NO SIGNIFICANT CHANGE WAS FOUND Confirmed by KIRTI CUMMINS MD ([id number]) on 02/09/2018 9:46:09 AM Referred By: Confirmed By:KIRTI CUMMINS MD
--- NOTE | 2018-02-09 09:48 | EKG ---
Test Reason : Blood Pressure : / mmHG Vent. Rate : 096 BPM Atrial Rate : 096 BPM P-R Int : 122 ms QRS Dur : 084 ms QT Int : 386 ms P-R-T Axes : 074 075 069 degrees QTc Int : 487 ms NORMAL SINUS RHYTHM PROLONGED QT ABNORMAL ECG WHEN COMPARED WITH ECG OF 19-SEP-2017 08:12, VENT. RATE HAS INCREASED BY 32 BPM Confirmed by KIRTI CUMMINS MD ([id number]) on 02/09/2018 9:48:36 AM Referred By: Confirmed By:KIRTI CUMMINS MD
[2018-02-09] MEDS ORDERED: PRENATAL VITAMINS W/ FOLIC ACID TABLET (FP) PO SCH (10:00)
[2018-02-09 10:01] LABS: CHLORIDE 109 mmol/L (98-107); POTASSIUM 3.8 mmol/L (3.5-5.1); SODIUM 141 mmol/L (136-145)
[2018-02-09] MEDS: RANITIDINE HCL 150 MG TABLET (FP) PO SCH (10:08)
[2018-02-09] MEDS: levETIRAcetam 500 MG TABLET (FP) PO SCH (10:08)
[2018-02-09] MEDS: NICOTINE 21 MG/24 HOURS TOPICAL PATCH TD SCH (10:09)
[2018-02-09 10:15] LABS: HEMOGLOBIN 11.2 GM/dL (11.7-16.9); MCH 28.1 pg (25.7-33.7); MEAN CELL VOLUME 85.2 fl (80-96); MEAN PLT VOLUME 8.6 fl (7.5-11.1); PLATELET COUNT 183 K/MM3 (134-434); WHITE BLOOD COUNT 3.5 K/mm3 (4.0-10.0)
[2018-02-09 10:42] LABS: ALBUMIN 3.8 g/dl (3.4-5.0); ALK PHOS 88 U/L (45-117); ANION GAP 14 (8-16); BILIRUBIN,TOTAL 0.8 mg/dL (0.2-1.0); BLOOD UREA NITROGEN 11 mg/dL (7-18); CALCIUM 8.6 mg/dL (8.5-10.1); CO2 18 mmol/L (21-32); GLUCOSE,RANDOM 94 mg/dL (74-106); SGOT/AST 252 U/L (15-37); SGPT/ALT 289 U/L (12-78); TOT PROT 9.2 g/dl (6.4-8.2)
[2018-02-09] MEDS ORDERED: NAPROXEN 500 MG TABLET (FP) PO ONE (10:45)
--- NOTE | 2018-02-09 15:35 | PN ---
[facility] CIWA - CIWA Score Nausea/Vomitin-No Nausea/No Vomiting Muscle Tremors: None Anxiety: 4-Mod. Anxious/Guarded Agitation: 3 Paroxysmal Sweats: 3 Orientation: 0-Oriented Tacttile Disturbances: 2-Mild Itch/Numbness/Burn Auditory Disturbances: 3-Moderate Harsh/Frighten Visual Disturbances: 0-None Headache: 0-None Present CIWA-Ar Total Score: 15 S Progress Note (SOAP) Subjective: Sweating, Anxious, Poor Appetite, Body Aches, Diarrhea, Interrupted Sleep. Objective: PATIENT A & O X 3, OBSERVED AMBULATING ON UNIT. NO ACUTE DISTRESS. 02/09/18 15:32 Vital Signs Temperature 96.4 F L 02/09/18 13:49 Pulse Rate 78 02/09/18 13:49 Respiratory Rate 18 02/09/18 13:49 Blood Pressure 139/83 02/09/18 13:49 O2 Sat by Pulse Oximetry (%) Laboratory Tests 02/08/18 02/09/18 02/09/18 22:00 06:00 06:00 WBC 3.5 L D RBC 4.00 Hgb 11.2 L Hct 34.0 L MCV 85.2 MCH 28.1 MCHC 33.0 RDW 17.0 H Plt Count 183 MPV 8.6 Platelet Comment No clumping noted Sodium 141 Potassium 3.8 Chloride 109 H Carbon Dioxide 18 L D Anion Gap 14 BUN 11 Creatinine 1.0 Creat Clearance w eGFR > 60 Random Glucose 94 Calcium 8.6 Total Bilirubin 0.8 D AST 252 H D ALT 289 H D Alkaline Phosphatase 88 D Total Protein 9.2 H Albumin 3.8 Urine Color Ltyellow Urine Appearance Clear Urine pH 6.0 Ur Specific [place] 1.008 Urine Protein Negative Urine Glucose (UA) Negative Urine Ketones Negative Urine Blood Negative Urine Nitrite Negative Urine Bilirubin Negative Urine Urobilinogen Negative Ur Leukocyte Esterase Negative RPR Titer 02/09/18 06:00 WBC RBC Hgb Hct MCV MCH MCHC RDW Plt Count MPV Platelet Comment Sodium Potassium Chloride Carbon Dioxide Anion Gap BUN Creatinine Creat Clearance w eGFR Random Glucose Calcium Total Bilirubin AST ALT Alkaline Phosphatase Total Protein Albumin Urine Color Urine Appearance Urine pH Ur Specific Lindrith Urine Protein Urine Glucose (UA) Urine Ketones Urine Blood Urine Nitrite Urine Bilirubin Urine Urobilinogen Ur Leukocyte Esterase RPR Titer Nonreactive LABS NOTED. Assessment: 02/09/18 15:33 WITHDRAWAL SYMPTOMS. Plan: CONTINUE DETOX. NAPROXEN BID FOR BODY ACHES. INCREASE DAILY PO FLUID INTAKE. PRN IMMODIUM FOR DIARRHEA. REPEAT AST, ALT ON 02/11/2018 FOR ELEVATED ADMISSION VALUES.
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
[2018-02-09] MEDS ORDERED: chlordiazePOXIDE HCL 25 MG CAPSULE PO SCH (17:00)
--- NOTE | 2018-02-09 21:05 | PN ---
[facility] Progress Note Note: Psychiatrist buckle and button maker note: Called by nursing staff on behalf of patient requesting to be ordered his psychotropic medications. Reconciliation could not be done because there is no medication entered on that list. Patient saw Dr Tillman today and was only prescribed Melatonin for insomnia. According to Dr Tillman' note. he made an attempt to call patient's pharmacy, [facility]([phone]) and was told that he did not filled anything since 2017. However pharmacy claims show that script for Celexa 20 mg po daily and Seroquel 200 mg po HS were recently filled on 01/23/18. These two medications as currently prescribed will be ordered for patient
[2018-02-09] MEDS ORDERED: NAPROXEN 500 MG TABLET (FP) PO SCH (22:00)
[2018-02-09] MEDS ORDERED: QUEtiapine FUMARATE 200 MG TABLET PO SCH (22:00)
[2018-02-09 22:54] VITALS: BP 128/85; PULSE 67; TEMP 96.4
[2018-02-10] MEDS ORDERED: CITALOPRAM HYDROBROMIDE 20 MG TABLET (FP) PO SCH (10:00)
[2018-02-10] MEDS ORDERED: chlordiazePOXIDE 5 MG CAPSULE PO SCH (17:00)
[2018-02-11] MEDS ORDERED: chlordiazePOXIDE HCL 10 MG CAPSULE PO SCH (17:00)
== END 2018-02-09 21:15 | disposition left against medical advice (07) | DRG 770 ==
LOC: YASAS 11:59 → Y3N 16:53
PROVIDERS: ADMIT Family Medicine Addiction Medicine; ATTEND Family Medicine Addiction Medicine
PROC: HZ2ZZZZ Detoxification Services for Substance Abuse Treatment (ICD-10-PCS; principal; 2018-02-08)
DX: F10.230 Alcohol dependence with withdrawal, uncomplicated (principal); F17.213 Nicotine dependence, cigarettes, with withdrawal; F19.24 Other psychoactive substance dependence with psychoactive substance-induced mood disorder; G40.909 Epilepsy, unspecified, not intractable, without status epilepticus; R00.0 Tachycardia, unspecified; B18.2 Chronic viral hepatitis C; G47.00 Insomnia, unspecified; K76.0 Fatty (change of) liver, not elsewhere classified; R94.31 Abnormal electrocardiogram [ECG] [EKG]; R26.2 Difficulty in walking, not elsewhere classified; Z99.89 Dependence on other enabling machines and devices; Z87.898 Personal history of other specified conditions; Z59.0 Homelessness; S01.511D Laceration without foreign body of lip, subsequent encounter; Y04.0XXD Assault by unarmed brawl or fight, subsequent encounter
CPT/HCPCS: 36415; 80053; 81003; 85027; 86593; 93005; 93010

== ENCOUNTER 2018-07-07 14:56 | Inpatient (IN) | payer OTHER ==
[2018-07-07 15:56] VITALS: BMI 32.5
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
[2018-07-07] MEDS ORDERED: ACETAMINOPHEN 325 MG TABLET (FP) PO PRN (16:55)
[2018-07-07] MEDS ORDERED: IBUPROFEN 400 MG TABLET (FP) PO PRN (16:55)
[2018-07-07] MEDS ORDERED: MENTHOL/PHENOL 1 EACH UD MM PRN (16:55)
[2018-07-07] MEDS ORDERED: hydrOXYzine PAMOATE 50 MG CAPSULE (FP) PO PRN (16:55)
[2018-07-07] MEDS ORDERED: MAG HYDROX/AL HYDROX/SIMETH 30 ML UNIT-DOSE CUP PO PRN (16:55)
[2018-07-07] MEDS ORDERED: guaiFENesin/D-METHORPHAN HB 10 ML UNIT-DOSE CUPS PO PRN (16:55)
[2018-07-07] MEDS ORDERED: chlordiazePOXIDE HCL 25 MG CAPSULE PO PRN (16:55)
[2018-07-07] MEDS ORDERED: LOPERAMIDE HCL 2 MG CAPSULE PO PRN (16:55)
[2018-07-07] MEDS ORDERED: MAGNESIUM HYDROX 2400MG/30ML ORAL SUSPENSION 30 ML CUP PO PRN (16:55)
[2018-07-07] MEDS ORDERED: P-EPHED 60MG/TRIPROLIDI 2.5MG TABLET PO PRN (16:55)
[2018-07-07] MEDS ORDERED: MAGNESIUM CITRATE 300 ML BOTTLE PO PRN (16:55)
[2018-07-07] MEDS: NICOTINE 21 MG/24 HOURS TOPICAL PATCH TD SCH (19:52)
[2018-07-07] MEDS ORDERED: MELATONIN 5 MG TABLETS PO PRN (22:00)
[2018-07-07] MEDS: THIAMINE HCL 100 MG TABLET (FP) PO SCH (22:50)
[2018-07-07] MEDS: chlordiazePOXIDE HCL 25 MG CAPSULE PO SCH (22:50)
[2018-07-08 01:51] LABS: URINE APPEARANCE CLEAR; URINE BILIRUBIN NEGATIVE (<2.0 mg/dL); URINE COLOR LTYELLOW; URINE GLUCOSE (UA) NEGATIVE (NEGATIVE); URINE KETONE NEGATIVE (NEGATIVE); URINE LEUK ESTERASE NEGATIVE (NEGATIVE); URINE NITRITE NEGATIVE (NEGATIVE); URINE PROTEIN NEGATIVE (NEGATIVE); URINE UROBILINOGEN NEGATIVE mg/dL (0.2-1.0)
[2018-07-08] MEDS: chlordiazePOXIDE HCL 25 MG CAPSULE PO SCH ×4 (05:30→22:31)
[2018-07-08] MEDS: PRENATAL VITAMINS W/ FOLIC ACID TABLET (FP) PO SCH (10:23)
[2018-07-08] MEDS: NICOTINE 21 MG/24 HOURS TOPICAL PATCH TD SCH (10:24)
[2018-07-08 10:56] LABS: HEMATOCRIT 33.5 % (35.4-49); HEMOGLOBIN 10.9 GM/dL (11.7-16.9); MCH 27.8 pg (25.7-33.7); MCHC 32.6 g/dl (32.0-35.9); MEAN CELL VOLUME 85.3 fl (80-96); MEAN PLT VOLUME 8.8 fl (7.5-11.1); PLATELET COUNT 154 K/MM3 (134-434); RBC 3.93 M/mm3 (4.00-5.60); RDW 15.4 % (11.9-15.9); WHITE BLOOD COUNT 4.1 K/mm3 (4.0-10.0)
[2018-07-08 11:00] LABS: ALBUMIN 3.5 g/dl (3.4-5.0); ALK PHOS 63 U/L (45-117); ANION GAP 9 MMOL/L (8-16); BILIRUBIN,TOTAL 0.3 mg/dL (0.2-1); BLOOD UREA NITROGEN 38 mg/dL (7-18); CALCIUM 8.9 mg/dL (8.5-10.1); CHLORIDE 108 mmol/L (98-107); CO2 22 mmol/L (21-32); CREATININE 1.3 mg/dL (0.55-1.3); GLUCOSE,RANDOM 97 mg/dL (74-106); POTASSIUM 3.7 mmol/L (3.5-5.1); SGOT/AST 93 U/L (15-37); SGPT/ALT 187 U/L (13-61); SODIUM 138 mmol/L (136-145); TOT PROT 8.6 g/dl (6.4-8.2)
--- NOTE | 2018-07-08 13:27 | PN ---
[facility] CIWA - CIWA Score Nausea/Vomitin-No Nausea/No Vomiting Muscle Tremors: 4-Moderate,w/Arms Extend Anxiety: 4-Mod. Anxious/Guarded Agitation: 4-Moderately Restless Paroxysmal Sweats: 3 Orientation: 0-Oriented Tacttile Disturbances: 1-Very Mild Itch/Numbness Auditory Disturbances: 0-None Visual Disturbances: 0-None Headache: 0-None Present CIWA-Ar Total Score: 16 [facility] Progress Note (SOAP) Subjective: Tremor, chills, sweating, no appetite, diarrhea Objective: 07/08/18 13:23 Last Vital Signs Temp Pulse Resp BP Pulse Ox 97.2 F L 98 H 20 120/79 07/08/18 09:50 07/08/18 13:00 07/08/18 13:00 07/08/18 09:50 Laboratory Tests 07/07/18 07/08/18 07/08/18 23:31 07:30 07:30 WBC 4.1 RBC 3.93 L Hgb 10.9 L Hct 33.5 L MCV 85.3 MCH 27.8 MCHC 32.6 RDW 15.4 Plt Count 154 MPV 8.8 Sodium 138 Potassium 3.7 Chloride 108 H Carbon Dioxide 22 Anion Gap 9 BUN 38 H Creatinine 1.3 Creat Clearance w eGFR > 60 Random Glucose 97 Calcium 8.9 Total Bilirubin 0.3 AST 93 H ALT 187 H Alkaline Phosphatase 63 Total Protein 8.6 H Albumin 3.5 Urine Color Ltyellow Urine Appearance Clear Urine pH 6.0 Ur Specific [place] 1.012 Urine Protein Negative Urine Glucose (UA) Negative Urine Ketones Negative Urine Blood Negative Urine Nitrite Negative Urine Bilirubin Negative Urine Urobilinogen Negative Ur Leukocyte Esterase Negative RPR Titer 07/08/18 07:30 WBC RBC Hgb Hct MCV MCH MCHC RDW Plt Count MPV Sodium Potassium Chloride Carbon Dioxide Anion Gap BUN Creatinine Creat Clearance w eGFR Random Glucose Calcium Total Bilirubin AST ALT Alkaline Phosphatase Total Protein Albumin Urine Color Urine Appearance Urine pH Ur Specific [place] Urine Protein Urine Glucose (UA) Urine Ketones Urine Blood Urine Nitrite Urine Bilirubin Urine Urobilinogen Ur Leukocyte Esterase RPR Titer Nonreactive Labs reviewed: elevated LFTs (AST/ALT) Assessment: 07/08/18 13:25 Withdrawal sxs Noted with elevated LFTs Plan: Continue detox Encouraged PO water intake, ensure for poor appetite Elevated LFTs: could be also r/t h/o hepatitis C, repeat AST, ALT
--- NOTE | 2018-07-08 19:31 | EKG ---
Test Reason : Blood Pressure : / mmHG Vent. Rate : 091 BPM Atrial Rate : 091 BPM P-R Int : 134 ms QRS Dur : 086 ms QT Int : 344 ms P-R-T Axes : 065 060 039 degrees QTc Int : 423 ms NORMAL SINUS RHYTHM NORMAL ECG WHEN COMPARED WITH ECG OF 09-FEB-2018 09:00, NO SIGNIFICANT CHANGE WAS FOUND Confirmed by LOLA GUTIERREZ MD ([id number]) on 07/08/2018 7:31:13 PM Referred By: Lanie Chandler Confirmed By:LOLA GUTIERREZ MD
[2018-07-08] MEDS: THIAMINE HCL 100 MG TABLET (FP) PO SCH (22:31)
[2018-07-09] MEDS: chlordiazePOXIDE HCL 25 MG CAPSULE PO SCH ×3 (06:46→17:50)
[2018-07-09 10:41] LABS: SGOT/AST 68 U/L (15-37); SGPT/ALT 158 U/L (13-61)
[2018-07-09] MEDS: PRENATAL VITAMINS W/ FOLIC ACID TABLET (FP) PO SCH (11:20)
[2018-07-09] MEDS: NICOTINE 21 MG/24 HOURS TOPICAL PATCH TD SCH (11:20)
--- NOTE | 2018-07-09 12:20 | PN ---
S CIWA - CIWA Score Nausea/Vomitin-Mild Nausea/No Vomiting Muscle Tremors: 3 Anxiety: 3 Agitation: 3 Paroxysmal Sweats: 3 Orientation: 0-Oriented Tacttile Disturbances: 0-None Auditory Disturbances: 0-None Visual Disturbances: 0-None Headache: 0-None Present CIWA-Ar Total Score: 13 [facility] Progress Note (SOAP) Subjective: Chronic leg pain' Sweats Requested a switch to librium but changed mind in view of a.m d/c Requesting d/c tomorrow, not Monday Objective: 07/09/18 13:08 A & O x 3 No obvious deformity Vital Signs Temperature 97.0 F L 07/09/18 09:12 Pulse Rate 73 07/09/18 09:12 Respiratory Rate 18 07/09/18 09:12 Blood Pressure 118/71 07/09/18 09:12 O2 Sat by Pulse Oximetry (%) Assessment: 07/09/18 13:14 Withdrawal sx chronic leg pain Plan: Motrin dose changed to 800mg prn d/c in a.m
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
[2018-07-09] MEDS: IBUPROFEN 400 MG TABLET (FP) PO PRN (20:31)
[2018-07-09] MEDS ORDERED: risperiDONE 1 MG TABLET (FP) PO SCH (22:00)
[2018-07-09] MEDS ORDERED: QUEtiapine FUMARATE 200 MG TABLET PO SCH (22:00)
[2018-07-09] MEDS: chlordiazePOXIDE 5 MG CAPSULE PO SCH (22:25)
[2018-07-09] MEDS: THIAMINE HCL 100 MG TABLET (FP) PO SCH (22:25)
[2018-07-10] MEDS: chlordiazePOXIDE 5 MG CAPSULE PO SCH (05:22)
[2018-07-10] MEDS: IBUPROFEN 400 MG TABLET (FP) PO PRN (05:23)
[2018-07-10 06:32] VITALS: BP 124/68; PULSE 78; TEMP 97.6
[2018-07-10] MEDS ORDERED: ESCITALOPRAM OXALATE 10 MG TABLET (FP) PO SCH (10:00)
--- NOTE | 2018-07-10 11:14 | DS ---
[facility] Detox Discharge Summary Admission Date: 07/07/18 Discharge Date: 07/10/18 - History Present History: Alcohol Dependence - Physical Exam Results Vital Signs: Vital Signs Temperature 97.6 F 07/10/18 06:32 Pulse Rate 78 07/10/18 06:32 Respiratory Rate 18 07/10/18 06:32 Blood Pressure 124/68 07/10/18 06:32 O2 Sat by Pulse Oximetry (%) Pertinent Admission Physical Exam Findings: PATIENT COMPLETED DETOX REGIMEN WITHOUT ADVERSE EVENT. PATIENT TO GO TO HOUSING APPT TODAY THEN FOLLOW UP AT [facility] FOR REHAB. PATIENT ENCOURAGED TO ATTEND GROUP MEETINGS TO PREVENT RELAPSE AND TO SEEK MEDICAL ATTENTION IF WITHDRAWAL SX OCCUR. PATIENT CLINICALLY STABLE AND DENIES SI/HI UPON D/C. - Treatment Hospital Course: Detox Protocol Followed, Detoxed Safely, Responded well, Discharged Condition Good, Rehab Referral Accepted Patient has Accepted a Rehab Referral to: TO FOLLOW UP TOMORROW AFTER HOUSING APPT FOR REHAB [facility] - Medication Discharge Medications: Ambulatory Orders NK [No Known Home Medication] 02/08/18 - AMA Did Patient Leave Against Medical Advice: No
[2018-07-10] MEDS ORDERED: chlordiazePOXIDE HCL 10 MG CAPSULE PO SCH (23:00)
== END 2018-07-10 09:15 | disposition home or self-care (01) | DRG 775 ==
LOC: YASAS 14:56 → Y3N 18:22
PROC: HZ2ZZZZ Detoxification Services for Substance Abuse Treatment (ICD-10-PCS; principal; 2018-07-07)
DX: F10.230 Alcohol dependence with withdrawal, uncomplicated (principal); F10.24 Alcohol dependence with alcohol-induced mood disorder; F10.282 Alcohol dependence with alcohol-induced sleep disorder; F17.213 Nicotine dependence, cigarettes, with withdrawal; F19.24 Other psychoactive substance dependence with psychoactive substance-induced mood disorder; F43.10 Post-traumatic stress disorder, unspecified; F31.9 Bipolar disorder, unspecified; G47.00 Insomnia, unspecified; R00.0 Tachycardia, unspecified; R94.5 Abnormal results of liver function studies; B18.2 Chronic viral hepatitis C; K76.0 Fatty (change of) liver, not elsewhere classified; E66.9 Obesity, unspecified; Z68.32 Body mass index [BMI] 32.0-32.9, adult; R26.2 Difficulty in walking, not elsewhere classified; Z99.89 Dependence on other enabling machines and devices; Z86.69 Personal history of other diseases of the nervous system and sense organs; Z90.5 Acquired absence of kidney; Z59.0 Homelessness
CPT/HCPCS: 36415; 80053; 81003; 84450; 84460; 85027; 86593; 93005; 93010

== ENCOUNTER 2019-03-15 15:18 | Emergency (ER) | payer OTHER ==
[2019-03-15 16:31] VITALS: TEMP 98; BMI 36.0
[2019-03-15] MEDS ORDERED: LORazepam 1 MG TABLET PO ONE (17:10)
--- NOTE | 2019-03-15 17:20 | PDOC ---
Documentation entered by Champ Guillen SCRIBE, acting as scribe for Segundo Lin MD. Segundo Lin MD: This documentation has been prepared by the Mindy amin Elijah, SCRIBE, under my direction and personally reviewed by me in its entirety. I confirm that the documentation accurately reflects all work, treatment, procedures, and medical decision making performed by me. Attending Attestation - Resident Resident Name: Kenneth - ED Attending Attestation I have performed the following: I have examined & evaluated the patient, The case was reviewed & discussed with the resident, I agree w/resident's findings & plan, Exceptions are as noted - HPI HPI: 03/15/19 17:17 38-year-old male with history of seizure disorder on Keppra 1500 mg twice a day , alcohol abuse presents with intoxication fall. The patient was sent from 2 [facility] while he attempted to register and to 2 [facility]. The patient fell and hit the back of his head. Denies loss of conscious. But the patient is clearly intoxicated here he is alert and awake and denies any pain at this time. Patient is requesting detoxification at the moment. Patient denies any taking anticoagulants. Denies any other symptoms. - Physicial Exam PE: 03/15/19 17:19 GENERAL: Awake, alert, but intoxicated, in no acute distress HEAD: No lacerations, avulsions. No blanco sign. No raccoon eyes. EYES: PERRLA, EOMI, sclera anicteric, conjunctiva clear ENT: Auricles normal inspection, hearing grossly normal, nares patent NECK: Normal ROM, supple LUNGS: Breath sounds equal, clear to auscultation bilaterally. No wheezes, and no crackles HEART: Regular rate and rhythm, normal S1 and S2, no murmurs, rubs or gallops ABDOMEN: Soft, nontender, No guarding, no rebound. No masses EXTREMITIES: Normal range of motion, no edema. No clubbing or cyanosis. No cords, erythema, or tenderness NEUROLOGICAL: Cranial nerves II through XII grossly intact. Slurred speech. SKIN: Warm, Dry, normal turgor, no rashes or lesions noted. - Medical Decision Making 03/15/19 17:20 Vital Signs Temp Pulse Resp BP Pulse Ox 98.0 F 110 H 16 141/86 100 03/15/19 15:18 03/15/19 15:18 03/15/19 15:18 03/15/19 15:18 03/15/19 15:18 The patient is clearly intoxicated secondary down called use. We'll obtain a head CT to rule out intracranial injury. We'll allow the patient is sober if the head CT is negative and then sent the patient 2 [facility] for detoxication. 03/15/19 18:21 CT head with no acute findings. Encephalomachia noted. Pt apparently has history of hemorrhagic stroke years ago. Will allow patient to sober and once sober, will send to 2 [facility]. 03/15/19 23:52 Pt is now sober and ambulatory. 2 [facility] accepts for detox. Will send pt to 2 [facility].
[2019-03-15] MEDS ORDERED: LORazepam 0.5 MG TABLET ONE (17:21)
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
[2019-03-15 23:53] VITALS: BP 116/60; PULSE 100
== END 2019-03-15 23:57 | disposition home or self-care (01) ==
LOC: JER 15:18
DX: F10.121 Alcohol abuse with intoxication delirium (principal); S09.8XXA Other specified injuries of head, initial encounter; W18.39XA Other fall on same level, initial encounter; Y93.89 Activity, other specified; Y92.238 Other place in hospital as the place of occurrence of the external cause; Y99.8 Other external cause status; Y90.9 Presence of alcohol in blood, level not specified; F11.20 Opioid dependence, uncomplicated; B18.2 Chronic viral hepatitis C; F32.9 Major depressive disorder, single episode, unspecified; Z86.73 Personal history of transient ischemic attack (TIA), and cerebral infarction without residual deficits; Z90.5 Acquired absence of kidney
CPT/HCPCS: 70450-TC; 99282-25

== ENCOUNTER 2019-03-16 00:40 | Inpatient (IN) | payer OTHER ==
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
[2019-03-16] MEDS ORDERED: MELATONIN 5 MG TABLETS PO PRN (01:32)
[2019-03-16] MEDS ORDERED: MAGNESIUM HYDROX 2400MG/30ML ORAL SUSPENSION 30 ML CUP PO PRN (01:32)
[2019-03-16] MEDS ORDERED: BISMUTH SUBSALICYLATE 524 MG/30 ML UD PO PRN (01:32)
[2019-03-16] MEDS ORDERED: MAGNESIUM CITRATE 300 ML BOTTLE PO PRN (01:32)
[2019-03-16] MEDS ORDERED: MAG HYDROX/AL HYDROX/SIMETH 30 ML UNIT-DOSE CUP PO PRN (01:32)
[2019-03-16] MEDS ORDERED: ACETAMINOPHEN 325 MG TABLET (FP) PO PRN (01:32)
[2019-03-16] MEDS ORDERED: MENTHOL/PHENOL 1 EACH UD MM PRN (01:32)
[2019-03-16] MEDS ORDERED: METHOCARBAMOL 500 MG TABLET PO PRN (01:32)
[2019-03-16] MEDS ORDERED: chlordiazePOXIDE HCL 25 MG CAPSULE PO PRN (01:32)
[2019-03-16] MEDS: chlordiazePOXIDE HCL 25 MG CAPSULE PO SCH ×4 (06:51→22:51)
--- NOTE | 2019-03-16 10:20 | PN ---
S CIWA - CIWA Score Nausea/Vomitin-No Nausea/No Vomiting Muscle Tremors: 2 Anxiety: 2 Agitation: 2 Paroxysmal Sweats: 3 Orientation: 0-Oriented Tacttile Disturbances: 2-Mild Itch/Numbness/Burn Auditory Disturbances: 0-None Visual Disturbances: 0-None Headache: 0-None Present CIWA-Ar Total Score: 11 S Progress Note (SOAP) Subjective: c/o sweats, anxiety, and interrupted sleep. Objective: 03/16/19 10:19 Vital Signs 03/16/19 03/16/19 03/16/19 02:30 03:00 03:30 Temperature Pulse Rate 118 H 108 H 108 H Respiratory 20 20 Rate Blood Pressure 03/16/19 03/16/19 03/16/19 04:00 04:30 05:00 Temperature Pulse Rate 108 H 112 H 112 H Respiratory 20 20 20 Rate Blood Pressure 03/16/19 03/16/19 03/16/19 05:30 06:00 06:30 Temperature Pulse Rate 114 H 116 H 116 H Respiratory 20 Rate Blood Pressure 03/16/19 03/16/19 03/16/19 07:00 07:30 08:00 Temperature Pulse Rate 114 H 114 H 250 H Respiratory 20 Rate Blood Pressure 03/16/19 09:44 Temperature 97.9 F Pulse Rate 117 H Respiratory 18 Rate Blood Pressure 126/60 Labs pending. Assessment: 03/16/19 10:19 AOX3, in no acute distress. Full ROM, ambulating in the unit. withdrawal symptoms. Plan: continue detox.
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
[2019-03-16] MEDS: PRENATAL VITAMINS W/ FOLIC ACID TABLET (FP) PO SCH (10:42)
[2019-03-16] MEDS: NICOTINE 21 MG/24 HOURS TOPICAL PATCH TD SCH (10:42)
[2019-03-16 15:11] LABS: HEMATOCRIT 33.6 % (35.4-49); HEMOGLOBIN 11.5 GM/dL (11.7-16.9); MCH 31.1 pg (25.7-33.7); MCHC 34.4 g/dl (32.0-35.9); MEAN CELL VOLUME 90.5 fl (80-96); MEAN PLT VOLUME 8.1 fl (7.5-11.1); PLATELET COUNT 139 K/MM3 (134-434); RBC 3.71 M/mm3 (4.00-5.60); RDW 13.1 % (11.9-15.9); WHITE BLOOD COUNT 2.6 K/mm3 (4.0-10.0)
[2019-03-16 15:20] LABS: ALBUMIN 3.4 g/dl (3.4-5.0); BILIRUBIN,TOTAL 0.8 mg/dL (0.2-1); BLOOD UREA NITROGEN 15.2 mg/dL (7-18); CALCIUM 8.9 mg/dL (8.5-10.1); CREATININE 1.4 mg/dL (0.55-1.3); POTASSIUM 3.2 mmol/L (3.5-5.1); TOT PROT 8.3 g/dl (6.4-8.2)
--- NOTE | 2019-03-16 17:41 | PN ---
[facility] Progress Note Note: Lab Review Abnormal Lab Results 03/16/19 03/16/19 09:45 09:45 WBC 2.6 L RBC 3.71 L Hgb 11.5 L Hct 33.6 L Potassium 3.2 L Chloride 108 H Carbon Dioxide 20 L Creatinine 1.4 H Random Glucose 129 H AST 192 H ALT 343 H Total Protein 8.3 H Potassium 20meq x 1 now then daily.
[2019-03-16] MEDS: POTASSIUM CHLORIDE TABS 20 MEQ TABLET.ER (FP) PO SCH (18:08)
[2019-03-16] MEDS: THIAMINE HCL 100 MG TABLET (FP) PO SCH (22:50)
[2019-03-16] MEDS: QUEtiapine FUMARATE 100 MG TABLET (FP) PO SCH (22:50)
[2019-03-17] MEDS: chlordiazePOXIDE HCL 25 MG CAPSULE PO SCH ×4 (06:32→22:38)
[2019-03-17] MEDS: METHYL SALICYLATE/MENTHOL OINT 30 GM TUBE TP SCH ×2 (10:52→23:21)
[2019-03-17] MEDS: POTASSIUM CHLORIDE TABS 20 MEQ TABLET.ER (FP) PO SCH (10:52)
[2019-03-17] MEDS: NICOTINE 21 MG/24 HOURS TOPICAL PATCH TD SCH (10:53)
[2019-03-17] MEDS: PRENATAL VITAMINS W/ FOLIC ACID TABLET (FP) PO SCH (10:53)
[2019-03-17] MEDS: IBUPROFEN 400 MG TABLET (FP) PO PRN ×2 (11:10→18:06)
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
[2019-03-17] MEDS: ACETAMINOPHEN 325 MG TABLET (FP) PO PRN (14:37)
[2019-03-17] MEDS: hydrOXYzine PAMOATE 25 MG CAPSULE (FP) PO PRN (18:07)
[2019-03-17] MEDS: THIAMINE HCL 100 MG TABLET (FP) PO SCH (22:38)
[2019-03-17] MEDS: QUEtiapine FUMARATE 100 MG TABLET (FP) PO SCH (22:38)
[2019-03-18] MEDS ORDERED: chlordiazePOXIDE HCL 10 MG CAPSULE PO PRN
[2019-03-18] MEDS ORDERED: levETIRAcetam 500 MG TABLET (FP) PO ONE (00:07)
[2019-03-18] MEDS: IBUPROFEN 400 MG TABLET (FP) PO PRN ×3 (03:57→18:48)
--- NOTE | 2019-03-18 05:10 | PN ---
[facility] Progress Note Note: Patient was found on the floor in the hallway. He denies LOC, dizziness or pain at this time. No new injury noted or reported at this time. On 03/15/2019, patient fell and was sent to [facility] ER prior to admission to detox. He denies LOC, dizziness and pain at this time. Fall was unwitnessed. Fall protocol #1 initiated. Patient refused to go to ER and signed the refusal of treatment form. Will monitor patient Vital Signs Temperature 97.2 F L 03/18/19 04:20 Pulse Rate 101 H 03/18/19 04:20 Respiratory Rate 20 03/18/19 04:20 Blood Pressure 132/87 03/18/19 04:20 O2 Sat by Pulse Oximetry (%) Action: Tylenol 325mg tablet 2 tablets oral Q6H prn Fall and seizure precaution
[2019-03-18] MEDS: chlordiazePOXIDE HCL 10 MG CAPSULE PO SCH ×4 (06:07→22:08)
[2019-03-18] MEDS: hydrOXYzine PAMOATE 25 MG CAPSULE (FP) PO PRN (09:20)
[2019-03-18] MEDS: levETIRAcetam 500 MG TABLET (FP) PO SCH ×2 (10:27→22:08)
[2019-03-18] MEDS: POTASSIUM CHLORIDE TABS 20 MEQ TABLET.ER (FP) PO SCH (10:28)
[2019-03-18] MEDS: PRENATAL VITAMINS W/ FOLIC ACID TABLET (FP) PO SCH (10:28)
[2019-03-18] MEDS: METHYL SALICYLATE/MENTHOL OINT 30 GM TUBE TP SCH ×2 (10:28→22:08)
[2019-03-18] MEDS: NICOTINE 21 MG/24 HOURS TOPICAL PATCH TD SCH (10:29)
--- NOTE | 2019-03-18 14:48 | PN ---
[facility] CIWA - CIWA Score Nausea/Vomitin-No Nausea/No Vomiting Muscle Tremors: None Anxiety: 3 Agitation: 2 Paroxysmal Sweats: No Perspiration Orientation: 0-Oriented Tacttile Disturbances: 0-None Auditory Disturbances: 1-Very Mild Visual Disturbances: 0-None Headache: 0-None Present CIWA-Ar Total Score: 6 S Progress Note (SOAP) Subjective: Diarrhea, Anxious. Objective: PATIENT A & O X 3. PATIENT OBSERVED MOVING ABOUT DETOX UNIT IN A WHEELCHAIR. IN NO ACUTE DISTRESS. 03/18/19 14:47 Vital Signs Temperature 97.7 F 03/18/19 12:41 Pulse Rate 98 H 03/18/19 12:41 Respiratory Rate 18 03/18/19 12:41 Blood Pressure 156/81 03/18/19 12:41 O2 Sat by Pulse Oximetry (%) Laboratory Tests 03/16/19 03/16/19 03/16/19 09:45 09:45 09:45 WBC 2.6 L RBC 3.71 L Hgb 11.5 L Hct 33.6 L MCV 90.5 MCH 31.1 D MCHC 34.4 RDW 13.1 D Plt Count 139 MPV 8.1 Sodium 137 Potassium 3.2 L Chloride 108 H Carbon Dioxide 20 L Anion Gap 9 BUN 15.2 Creatinine 1.4 H Est GFR (CKD-EPI)AfAm 74.39 Est GFR (CKD-EPI)NonAf 64.18 Random Glucose 129 H Calcium 8.9 Total Bilirubin 0.8 AST 192 H ALT 343 H Alkaline Phosphatase 117 Total Protein 8.3 H Albumin 3.4 RPR Titer Nonreactive LABS NOTED. PATIENT HAS BEEN ANEMIC AND HAS HAD LOW WBC LEVEL AND ELEVATED LIVER ENZYME LEVELS ON PREVIOUS ADMISSIONS. RESULTS OF QFT /TB TEST PENDING. 03/18/19 14:50 Assessment: 03/18/19 14:51 WITHDRAWAL SYMPTOMS. ANEMIA. LEUKOPENIA. ELEVATED LIVER ENZYMES. 03/18/19 14:51 Plan: CONTINUE DETOX. PATIENT REPORTS THAT CURRENT WITHDRAWAL / DETOX SYMPTOMS ARE MILD IN DEGREE AND THAT HE IS TOLERATING THEM WELL. AT PATIENT'S REQUEST, CURRENT DETOX MEDICATION REGIMEN MODIFIED SO THAT PATIENT MAY BE DISCHARGED TOMORROW, 03/19/2019, SO THAT HE MAY CONSULT OUTSIDE MEDICAL PROVIDER FOR RECENT INJURY THAT HE SUSTAINED TO HIS LEG PRIOR TO ADMISSION TO DETOX UNIT. PATIENT REPORTS HISTORY OF BEING PRESCRIBED KEPPRA (1000 MG PO BID) FOR TREATMENT OF SEIZURE DISORDER. PATIENT PRESCRIBED THIS MEDICATION WHILE ADMITTED FOR DETOX. PATIENT DID NOT BRING MEDICATION WITH HIM AND HE IS UNABLE TO RECALL NAME OF PHARMACY WHERE HE LAST PICKED UP MEDICATION. KEPPRA LEVEL ORDERED DURING THIS DETOX ADMISSION, RESULT STILL PENDING. PATIENT DOES REPORT THAT HE CURRENTLY HAS REMAINING SUPPLY OF THE MEDICATION AT HOME THAT HE CAN RESUME TAKING AFTER DISCHARGE FORM DETOX UNTIL HE IS ABLE TO CONSULT OUTSIDE MEDICAL PROVIDER AGAIN.
[2019-03-18] MEDS: ACETAMINOPHEN 325 MG TABLET (FP) PO PRN (17:31)
[2019-03-18] MEDS ORDERED: hydrOXYzine HCL 25 MG TABLET (FP) PO PRN (19:22)
[2019-03-18] MEDS ORDERED: hydrOXYzine PAMOATE 25 MG CAPSULE (FP) PO PRN (19:41)
[2019-03-18] MEDS: THIAMINE HCL 100 MG TABLET (FP) PO SCH (22:08)
[2019-03-18] MEDS: QUEtiapine FUMARATE 100 MG TABLET (FP) PO SCH (22:08)
[2019-03-19] MEDS ORDERED: chlordiazePOXIDE HCL 10 MG CAPSULE PO SCH (05:00)
[2019-03-19] MEDS ORDERED: chlordiazePOXIDE HCL 10 MG CAPSULE PO ONE (05:00)
[2019-03-19] MEDS: IBUPROFEN 400 MG TABLET (FP) PO PRN (05:17)
--- NOTE | 2019-03-19 09:13 | DS ---
[facility] Detox Discharge Summary Admission Date: 03/16/19 Discharge Date: 03/19/19 - History Present History: Alcohol Dependence - Physical Exam Results Vital Signs: Vital Signs Temperature 96.1 F L 03/19/19 06:00 Pulse Rate 68 03/19/19 06:00 Respiratory Rate 18 03/19/19 06:00 Blood Pressure 103/61 03/19/19 06:00 O2 Sat by Pulse Oximetry (%) Pertinent Admission Physical Exam Findings: pt arrived in withdrawal sx Laboratory Tests 03/16/19 03/16/19 03/16/19 09:45 09:45 09:45 WBC 2.6 L RBC 3.71 L Hgb 11.5 L Hct 33.6 L MCV 90.5 MCH 31.1 D MCHC 34.4 RDW 13.1 D Plt Count 139 MPV 8.1 Sodium 137 Potassium 3.2 L Chloride 108 H Carbon Dioxide 20 L Anion Gap 9 BUN 15.2 Creatinine 1.4 H Est GFR (CKD-EPI)AfAm 74.39 Est GFR (CKD-EPI)NonAf 64.18 Random Glucose 129 H Calcium 8.9 Total Bilirubin 0.8 AST 192 H ALT 343 H Alkaline Phosphatase 117 Total Protein 8.3 H Albumin 3.4 RPR Titer Nonreactive today pt is aaox3 ambulating no acute distress pt received potassium during his stay - Treatment Hospital Course: Detox Protocol Followed, Detoxed Safely, Responded well, Discharged Condition Good, Rehab Referral Accepted Patient has Accepted a Rehab Referral to: pt declined rehab; referral provided - Medication Discharge Medications: Ambulatory Orders levETIRAcetam [Keppra -] 1,000 mg PO BID 03/18/19 - Diagnosis (1) Alcohol dependence with uncomplicated withdrawal Current Visit: Yes Status: Chronic (2) Anemia Current Visit: Yes Status: Chronic (3) Elevated liver enzymes Current Visit: Yes Status: Acute (4) Hypokalemia Current Visit: Yes Status: Acute (5) Leukopenia Current Visit: Yes Status: Acute Qualifiers: Leukopenia type: unspecified Qualified Code(s): D72.819 - Decreased white blood cell count, unspecified (6) Depression Current Visit: Yes Status: Chronic Qualifiers: Depression Type: unspecified Qualified Code(s): F32.9 - Major depressive disorder, single episode, unspecified (7) Hep C w/o coma, chronic Current Visit: Yes Status: Chronic (8) MDD (major depressive disorder) Current Visit: Yes Status: Chronic (9) Post traumatic stress disorder (PTSD) Current Visit: Yes Status: Chronic (10) Seizure Current Visit: Yes Status: Chronic (11) Alcohol intoxication delirium, acute, mixed level of activity Current Visit: No Status: Acute (12) Alcohol-induced anxiety disorder Current Visit: No Status: Acute (13) Alcohol-induced sleep disorder Current Visit: No Status: Acute (14) Ambulates with cane Current Visit: No Status: Acute (15) Fall on same level Current Visit: No Status: Acute Qualifiers: Encounter type: initial encounter Qualified Code(s): W18.30XA - Fall on same level, unspecified, initial encounter (16) History of nephrectomy, unilateral Current Visit: No Status: Acute (17) History of nephrectomy, unilateral Current Visit: No Status: Acute (18) Insomnia Current Visit: No Status: Acute (19) Nicotine dependence Current Visit: Yes Status: Acute Qualifiers: Nicotine product type: cigarettes Substance use status: uncomplicated Qualified Code(s): F17.210 - Nicotine dependence, cigarettes, uncomplicated (20) Substance induced mood disorder Current Visit: No Status: Acute (21) Substance induced mood disorder Current Visit: No Status: Acute (22) Bilateral knee pain Current Visit: No Status: Chronic Qualifiers: Chronicity: chronic Qualified Code(s): M25.561 - Pain in right knee; M25.562 - Pain in left knee; M25.562 - Pain in left knee; G89.29 - Other chronic pain; G89.29 - Other chronic pain (23) Bipolar disorder Current Visit: No Status: Chronic (24) Chronic pain due to trauma Current Visit: No Status: Chronic (25) Fatty liver Current Visit: No Status: Chronic (26) Methadone maintenance therapy patient Current Visit: Yes Status: Chronic (27) Obesity (BMI 30-39.9) Current Visit: Yes Status: Chronic (28) Opioid dependence on agonist therapy Current Visit: No Status: Chronic (29) Post traumatic stress disorder (PTSD) Current Visit: No Status: Chronic (30) Hemorrhagic cerebrovascular accident (CVA) Current Visit: No Status: Resolved - AMA Did Patient Leave Against Medical Advice: No (pt declined; going to see his orthopedic MD)
[2019-03-19 09:30] VITALS: BP 140/88; PULSE 101; TEMP 98.1
--- NOTE | 2019-03-19 13:43 | EKG ---
Test Reason : Blood Pressure : / mmHG Vent. Rate : 112 BPM Atrial Rate : 112 BPM P-R Int : 124 ms QRS Dur : 082 ms QT Int : 372 ms P-R-T Axes : 064 071 058 degrees QTc Int : 507 ms SINUS TACHYCARDIA OTHERWISE NORMAL ECG WHEN COMPARED WITH ECG OF 07-JUL-2018 20:19, NO SIGNIFICANT CHANGE WAS FOUND Confirmed by Duong Martin MD ([id number]) on 03/19/2019 1:42:51 PM Referred By: Claire WALLIS Confirmed By:Duong Martin MD
[2019-03-20] MEDS ORDERED: chlordiazePOXIDE HCL 10 MG CAPSULE PO ONE (05:00)
== END 2019-03-19 09:30 | disposition home or self-care (01) | DRG 773 ==
LOC: YASAS 00:40 → Y6N 00:45
PROVIDERS: ADMIT Surgery; ATTEND Surgery
PROC: HZ2ZZZZ Detoxification Services for Substance Abuse Treatment (ICD-10-PCS; principal; 2019-03-16)
DX: F10.230 Alcohol dependence with withdrawal, uncomplicated (principal); F10.282 Alcohol dependence with alcohol-induced sleep disorder; F10.280 Alcohol dependence with alcohol-induced anxiety disorder; F10.220 Alcohol dependence with intoxication, uncomplicated; F11.20 Opioid dependence, uncomplicated; F17.210 Nicotine dependence, cigarettes, uncomplicated; F19.24 Other psychoactive substance dependence with psychoactive substance-induced mood disorder; F31.9 Bipolar disorder, unspecified; F43.10 Post-traumatic stress disorder, unspecified; D64.9 Anemia, unspecified; K76.0 Fatty (change of) liver, not elsewhere classified; E66.9 Obesity, unspecified; Z68.35 Body mass index [BMI] 35.0-35.9, adult; G47.00 Insomnia, unspecified; D72.819 Decreased white blood cell count, unspecified; G89.29 Other chronic pain; B18.2 Chronic viral hepatitis C; R29.2 Abnormal reflex; R94.5 Abnormal results of liver function studies; E87.6 Hypokalemia; Z59.0 Homelessness; Z99.89 Dependence on other enabling machines and devices; Z86.69 Personal history of other diseases of the nervous system and sense organs; Z90.5 Acquired absence of kidney; W19.XXXA Unspecified fall, initial encounter; Z91.81 History of falling; Y93.9 Activity, unspecified; Y92.239 Unspecified place in hospital as the place of occurrence of the external cause
CPT/HCPCS: 36415; 70450-TC; 80053; 85027; 86480; 86593; 93005; 93010; 99282-25

== ENCOUNTER 2019-05-02 08:23 | Inpatient (IN) | payer OTHER ==
[2019-05-02 09:00] VITALS: BMI 30.9
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
[2019-05-02] MEDS ORDERED: MAG HYDROX/AL HYDROX/SIMETH 30 ML UNIT-DOSE CUP PO PRN (10:03)
[2019-05-02] MEDS ORDERED: ACETAMINOPHEN 325 MG TABLET (FP) PO PRN ×2 (10:03)
[2019-05-02] MEDS ORDERED: MAGNESIUM CITRATE 300 ML BOTTLE PO PRN (10:03)
[2019-05-02] MEDS ORDERED: MELATONIN 5 MG TABLETS PO PRN (10:03)
[2019-05-02] MEDS ORDERED: MAGNESIUM HYDROX 2400MG/30ML ORAL SUSPENSION 30 ML CUP PO PRN (10:03)
[2019-05-02] MEDS ORDERED: NICOTINE POLACRILEX 2 MG GUM BUC PRN (10:03)
[2019-05-02] MEDS ORDERED: BISMUTH SUBSALICYLATE 262 MG/15 ML BTL PO PRN (10:03)
[2019-05-02] MEDS ORDERED: MENTHOL/PHENOL 1 EACH UD MM PRN (10:03)
[2019-05-02] MEDS ORDERED: IBUPROFEN 400 MG TABLET (FP) PO PRN (10:03)
[2019-05-02] MEDS ORDERED: hydrOXYzine PAMOATE 25 MG CAPSULE (FP) PO PRN (10:03)
[2019-05-02] MEDS ORDERED: chlordiazePOXIDE HCL 25 MG CAPSULE PO PRN (10:05)
[2019-05-02] MEDS: chlordiazePOXIDE HCL 25 MG CAPSULE PO SCH ×3 (11:56→22:24)
[2019-05-02] MEDS: NICOTINE 14 MG/24 HOURS TOPICAL PATCH TD SCH (11:57)
[2019-05-02] MEDS: IBUPROFEN 400 MG TABLET (FP) PO PRN (17:47)
[2019-05-02] MEDS: levETIRAcetam 500 MG TABLET (FP) PO SCH (22:23)
[2019-05-02] MEDS: THIAMINE HCL 100 MG TABLET (FP) PO SCH (22:25)
[2019-05-03] MEDS: chlordiazePOXIDE HCL 25 MG CAPSULE PO SCH ×2 (06:09→10:18)
[2019-05-03] MEDS: levETIRAcetam 500 MG TABLET (FP) PO SCH ×2 (10:18→22:09)
[2019-05-03] MEDS: PRENATAL VITAMINS W/ FOLIC ACID TABLET (FP) PO SCH (10:19)
[2019-05-03] MEDS: IBUPROFEN 400 MG TABLET (FP) PO PRN ×2 (10:20→22:09)
[2019-05-03] MEDS: NICOTINE 14 MG/24 HOURS TOPICAL PATCH TD SCH (10:22)
[2019-05-03 12:06] LABS: HEMOGLOBIN 12.8 GM/dL (11.7-16.9); MCHC 33.6 g/dl (32.0-35.9); MEAN CELL VOLUME 92.3 fl (80-96); MEAN PLT VOLUME 8.6 fl (7.5-11.1); PLATELET COUNT 115 K/MM3 (134-434); RBC 4.12 M/mm3 (4.00-5.60); RDW 14.4 % (11.9-15.9)
[2019-05-03 12:15] LABS: ALBUMIN 3.1 g/dl (3.4-5.0); BILIRUBIN,TOTAL 0.8 mg/dL (0.2-1); BLOOD UREA NITROGEN 16.6 mg/dL (7-18); CALCIUM 9.3 mg/dL (8.5-10.1); CREATININE 0.9 mg/dL (0.55-1.3); POTASSIUM 3.3 mmol/L (3.5-5.1); TOT PROT 7.7 g/dl (6.4-8.2)
[2019-05-03] MEDS ORDERED: LORazepam 1 MG TABLET PO PRN (13:06)
--- NOTE | 2019-05-03 13:14 | PN ---
S CIWA - CIWA Score Nausea/Vomitin Muscle Tremors: 2 Anxiety: 2 Agitation: 2 Paroxysmal Sweats: 1-Minimal Palms Moist Orientation: 0-Oriented Tacttile Disturbances: 1-Very Mild Itch/Numbness Auditory Disturbances: 0-None Visual Disturbances: 0-None Headache: 2-Mild CIWA-Ar Total Score: 12 BHS Progress Note (SOAP) Subjective: alert,irritable,anxious,interrupted sleep,tremor Objective: 05/03/19 13:09 Vital Signs Temperature 98.2 F 05/03/19 09:07 Pulse Rate 84 05/03/19 09:07 Respiratory Rate 18 05/03/19 09:07 Blood Pressure 115/82 05/03/19 09:07 O2 Sat by Pulse Oximetry (%) Laboratory Last Values WBC 2.0 K/mm3 (4.0-10.0) L 05/03/19 09:07 RBC 4.12 M/mm3 (4.00-5.60) 05/03/19 09:07 Hgb 12.8 GM/dL (11.7-16.9) 05/03/19 09:07 Hct 38.0 % (35.4-49) 05/03/19 09:07 MCV 92.3 fl (80-96) 05/03/19 09:07 MCH 31.0 pg (25.7-33.7) 05/03/19 09:07 MCHC 33.6 g/dl (32.0-35.9) 05/03/19 09:07 RDW 14.4 % (11.9-15.9) 05/03/19 09:07 Plt Count 115 K/MM3 (134-434) L 05/03/19 09:07 MPV 8.6 fl (7.5-11.1) 05/03/19 09:07 Sodium 141 mmol/L (136-145) 05/03/19 09:07 Potassium 3.3 mmol/L (3.5-5.1) L 05/03/19 09:07 Chloride 111 mmol/L (98-107) H 05/03/19 09:07 Carbon Dioxide 22 mmol/L (21-32) 05/03/19 09:07 Anion Gap 8 MMOL/L (8-16) 05/03/19 09:07 BUN 16.6 mg/dL (7-18) 05/03/19 09:07 Creatinine 0.9 mg/dL (0.55-1.3) 05/03/19 09:07 Est GFR (CKD-EPI)AfAm 126.02 05/03/19 09:07 Est GFR (CKD-EPI)NonAf 108.73 05/03/19 09:07 Random Glucose 150 mg/dL (74-106) H 05/03/19 09:07 Calcium 9.3 mg/dL (8.5-10.1) 05/03/19 09:07 Total Bilirubin 0.8 mg/dL (0.2-1) 05/03/19 09:07 AST 124 U/L (15-37) H 05/03/19 09:07 ALT 197 U/L (13-61) H 05/03/19 09:07 Alkaline Phosphatase 109 U/L (45-117) 05/03/19 09:07 Total Protein 7.7 g/dl (6.4-8.2) 05/03/19 09:07 Albumin 3.1 g/dl (3.4-5.0) L 05/03/19 09:07 Assessment: 05/03/19 13:10 withdrawal symptom Plan: continue detox,regimen changed from librium to ativan,patient has hepatitis c and elevated liver enzymes,k dur replacement for k 3.3,repeat cbc initial wbc is 2000,initial glucose is 150 will repeat cbc, cmp,inr,fasting glucose in am,seizure precaution
[2019-05-03] MEDS ORDERED: POTASSIUM CHLORIDE TABS 10 MEQ TABLET.ER (FP) PO SCH (14:00)
[2019-05-03] MEDS: POTASSIUM CHLORIDE TABS 20 MEQ TABLET.ER (FP) PO SCH (14:36)
--- NOTE | 2019-05-03 14:39 | CONSULT ---
[facility] Psychiatric Consult - Data Date of interview: 05/03/19 Admission source: Megan
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
[2019-05-03] MEDS: LORazepam 2 MG TABLET PO SCH ×2 (18:10→22:08)
[2019-05-03] MEDS ORDERED: QUEtiapine FUMARATE 100 MG TABLET (FP) PO SCH (22:00)
[2019-05-03] MEDS: THIAMINE HCL 100 MG TABLET (FP) PO SCH (22:09)
[2019-05-04] MEDS ORDERED: chlordiazePOXIDE HCL 25 MG CAPSULE PO SCH (05:00)
[2019-05-04] MEDS: LORazepam 2 MG TABLET PO SCH ×4 (05:57→22:16)
[2019-05-04] MEDS: levETIRAcetam 500 MG TABLET (FP) PO SCH ×2 (10:06→22:16)
[2019-05-04] MEDS: POTASSIUM CHLORIDE TABS 20 MEQ TABLET.ER (FP) PO SCH (10:06)
[2019-05-04] MEDS: PRENATAL VITAMINS W/ FOLIC ACID TABLET (FP) PO SCH (10:06)
[2019-05-04] MEDS: NICOTINE 14 MG/24 HOURS TOPICAL PATCH TD SCH (10:07)
--- NOTE | 2019-05-04 14:52 | PN ---
[facility] CIWA - CIWA Score Nausea/Vomitin-No Nausea/No Vomiting Muscle Tremors: 2 Anxiety: 4-Mod. Anxious/Guarded Agitation: 4-Moderately Restless Paroxysmal Sweats: 2 Orientation: 0-Oriented Tacttile Disturbances: 2-Mild Itch/Numbness/Burn Auditory Disturbances: 0-None Visual Disturbances: 0-None Headache: 0-None Present CIWA-Ar Total Score: 14 S Progress Note (SOAP) Subjective: Anxious, Agitated, Restless, Body Aches, Sweating. Objective: PATIENT A & O X 3, OBSERVED AMBULATING ON UNIT UNASSISTED. IN NO ACUTE DISTRESS. 05/04/19 14:48 Vital Signs Temperature 96.1 F L 05/04/19 13:28 Pulse Rate 80 05/04/19 13:28 Respiratory Rate 18 05/04/19 13:28 Blood Pressure 123/83 05/04/19 13:28 O2 Sat by Pulse Oximetry (%) Laboratory Tests 05/03/19 05/03/19 05/03/19 09:07 09:07 09:07 WBC 2.0 L RBC 4.12 Hgb 12.8 Hct 38.0 MCV 92.3 MCH 31.0 MCHC 33.6 RDW 14.4 Plt Count 115 L MPV 8.6 Sodium 141 Potassium 3.3 L Chloride 111 H Carbon Dioxide 22 Anion Gap 8 BUN 16.6 Creatinine 0.9 Est GFR (CKD-EPI)AfAm 126.02 Est GFR (CKD-EPI)NonAf 108.73 Random Glucose 150 H Calcium 9.3 Total Bilirubin 0.8 AST 124 H ALT 197 H Alkaline Phosphatase 109 Total Protein 7.7 Albumin 3.1 L RPR Titer Nonreactive LABS NOTED. Assessment: 05/04/19 14:49 WITHDRAWAL SYMPTOMS. HYPOKALEMIA. LEUKOPENIA. HYPERGLYCEMIA. ELEVATED AST LEVEL. ELEVATED ALT LEVEL. 05/04/19 14:49 Plan: CONTINUE DETOX. INCREASE DAILY PO WATER INTAKE. CONTINUE K-DUR PO. REPEAT K LEVEL ORDERED FOR TOMORROW AM TO SEE IF ANY CHANGE FROM ADMISSION K LEVEL. FASTING GLUCOSE LEVEL ORDERED FOR TOMORROW AM FOR ELEVATED RANDOM GLUCOSE LEVEL NOTED ON DETOX ADMISSION LABORATORY ASSESSMENT.
--- NOTE | 2019-05-04 22:12 | PN ---
[facility] Progress Note Note: Psychiatry Attending's note (delayed) : Home Health Lpn had met with patient in the morning. Noted as well groomed + ambulatory. Steady gait. Patient was observed walking around without cane. Complained of refractory insomnia. Angry, hostile and irritable. Wanted venlafaxine and increase in the dose of seroquel. Plan : Information from ACT team : pending. In the meantime, seroquel 150 mg po hs. Will monitor EKG (repeat). Discussed with patient. Mr Colbert agrees.
[2019-05-04] MEDS: THIAMINE HCL 100 MG TABLET (FP) PO SCH (22:16)
[2019-05-04] MEDS: IBUPROFEN 400 MG TABLET (FP) PO PRN (22:17)
[2019-05-04] MEDS: QUEtiapine FUMARATE 100 MG TABLET (FP) PO SCH (22:18)
[2019-05-05] MEDS ORDERED: chlordiazePOXIDE HCL 10 MG CAPSULE PO PRN
[2019-05-05] MEDS ORDERED: chlordiazePOXIDE HCL 10 MG CAPSULE PO SCH (05:00)
[2019-05-05] MEDS: LORazepam 1 MG TABLET PO SCH ×4 (05:55→22:47)
[2019-05-05] MEDS: levETIRAcetam 500 MG TABLET (FP) PO SCH ×2 (10:08→22:46)
[2019-05-05] MEDS: POTASSIUM CHLORIDE TABS 20 MEQ TABLET.ER (FP) PO SCH (10:08)
[2019-05-05] MEDS: PRENATAL VITAMINS W/ FOLIC ACID TABLET (FP) PO SCH (10:08)
[2019-05-05] MEDS: IBUPROFEN 400 MG TABLET (FP) PO PRN ×2 (10:08→18:05)
[2019-05-05] MEDS: NICOTINE 14 MG/24 HOURS TOPICAL PATCH TD SCH (12:08)
--- NOTE | 2019-05-05 13:39 | PN ---
S CIWA - CIWA Score Nausea/Vomitin-Mild Nausea/No Vomiting Muscle Tremors: 2 Anxiety: 3 Agitation: 2 Paroxysmal Sweats: 1-Minimal Palms Moist Orientation: 0-Oriented Tacttile Disturbances: 0-None Auditory Disturbances: 0-None Visual Disturbances: 0-None Headache: 0-None Present CIWA-Ar Total Score: 9 S Progress Note (SOAP) Subjective: 39 years old male multiple patient [facility] admission since 2017 was admitted on 05/02/19 for alcohol withdrawal sx management doing well with ativan detox regimen seen by psychiatrist resume seroquel adherence with keppra Objective: 05/05/19 13:41 Vital Signs Temperature 96.5 F L 05/05/19 09:53 Pulse Rate 64 05/05/19 09:53 Respiratory Rate 18 05/05/19 09:53 Blood Pressure 119/75 05/05/19 09:53 O2 Sat by Pulse Oximetry (%) Laboratory Last Values WBC 2.0 K/mm3 (4.0-10.0) L 05/03/19 09:07 RBC 4.12 M/mm3 (4.00-5.60) 05/03/19 09:07 Hgb 12.8 GM/dL (11.7-16.9) 05/03/19 09:07 Hct 38.0 % (35.4-49) 05/03/19 09:07 MCV 92.3 fl (80-96) 05/03/19 09:07 MCH 31.0 pg (25.7-33.7) 05/03/19 09:07 MCHC 33.6 g/dl (32.0-35.9) 05/03/19 09:07 RDW 14.4 % (11.9-15.9) 05/03/19 09:07 Plt Count 115 K/MM3 (134-434) L 05/03/19 09:07 MPV 8.6 fl (7.5-11.1) 05/03/19 09:07 Sodium 141 mmol/L (136-145) 05/03/19 09:07 Potassium 3.3 mmol/L (3.5-5.1) L 05/03/19 09:07 Chloride 111 mmol/L (98-107) H 05/03/19 09:07 Carbon Dioxide 22 mmol/L (21-32) 05/03/19 09:07 Anion Gap 8 MMOL/L (8-16) 05/03/19 09:07 BUN 16.6 mg/dL (7-18) 05/03/19 09:07 Creatinine 0.9 mg/dL (0.55-1.3) 05/03/19 09:07 Est GFR (CKD-EPI)AfAm 126.02 05/03/19 09:07 Est GFR (CKD-EPI)NonAf 108.73 05/03/19 09:07 POC Glucometer 99 UNITS (80-120) 05/05/19 07:12 Random Glucose 150 mg/dL (74-106) H 05/03/19 09:07 Calcium 9.3 mg/dL (8.5-10.1) 05/03/19 09:07 Total Bilirubin 0.8 mg/dL (0.2-1) 05/03/19 09:07 AST 124 U/L (15-37) H 05/03/19 09:07 ALT 197 U/L (13-61) H 05/03/19 09:07 Alkaline Phosphatase 109 U/L (45-117) 05/03/19 09:07 Total Protein 7.7 g/dl (6.4-8.2) 05/03/19 09:07 Albumin 3.1 g/dl (3.4-5.0) L 05/03/19 09:07 RPR Titer Nonreactive (NONREACTIVE) 05/03/19 09:07 lab noted 05/05/19 13:42 low K+ continue K+ supplement hepatitis c positive by history 05/05/19 13:43 Assessment: 05/05/19 13:43 alcohol withdrawal sx Plan: continue ativan detox regimen
[2019-05-05] MEDS: THIAMINE HCL 100 MG TABLET (FP) PO SCH (22:46)
[2019-05-05] MEDS: QUEtiapine FUMARATE 100 MG TABLET (FP) PO SCH (22:47)
[2019-05-06] MEDS ORDERED: LORazepam 0.5 MG TABLET PO PRN
[2019-05-06] MEDS ORDERED: chlordiazePOXIDE HCL 10 MG CAPSULE PO SCH (05:00)
[2019-05-06] MEDS: LORazepam 0.5 MG TABLET PO SCH ×4 (05:23→22:20)
[2019-05-06] MEDS: IBUPROFEN 400 MG TABLET (FP) PO PRN ×2 (05:23→15:41)
--- NOTE | 2019-05-06 10:12 | PN ---
S CIWA - CIWA Score Nausea/Vomitin-No Nausea/No Vomiting Muscle Tremors: 2 Anxiety: 1-Mildly Anxious Agitation: 1-Slight > Activity Paroxysmal Sweats: 2 Orientation: 0-Oriented Tacttile Disturbances: 0-None Auditory Disturbances: 0-None Visual Disturbances: 0-None Headache: 0-None Present CIWA-Ar Total Score: 6 BHS Progress Note (SOAP) Subjective: doing well with ativan detox regimen alert oriented x 3 social with peers in day room left cane in room strong recommend the patient walking with cane and change position slowly Objective: 05/06/19 10:14 Vital Signs Temperature 96.5 F L 05/06/19 09:30 Pulse Rate 69 05/06/19 09:30 Respiratory Rate 18 05/06/19 09:30 Blood Pressure 149/101 H 05/06/19 09:30 O2 Sat by Pulse Oximetry (%) Laboratory Last Values WBC 2.0 K/mm3 (4.0-10.0) L 05/03/19 09:07 RBC 4.12 M/mm3 (4.00-5.60) 05/03/19 09:07 Hgb 12.8 GM/dL (11.7-16.9) 05/03/19 09:07 Hct 38.0 % (35.4-49) 05/03/19 09:07 MCV 92.3 fl (80-96) 05/03/19 09:07 MCH 31.0 pg (25.7-33.7) 05/03/19 09:07 MCHC 33.6 g/dl (32.0-35.9) 05/03/19 09:07 RDW 14.4 % (11.9-15.9) 05/03/19 09:07 Plt Count 115 K/MM3 (134-434) L 05/03/19 09:07 MPV 8.6 fl (7.5-11.1) 05/03/19 09:07 Sodium 141 mmol/L (136-145) 05/03/19 09:07 Potassium 3.3 mmol/L (3.5-5.1) L 05/03/19 09:07 Chloride 111 mmol/L (98-107) H 05/03/19 09:07 Carbon Dioxide 22 mmol/L (21-32) 05/03/19 09:07 Anion Gap 8 MMOL/L (8-16) 05/03/19 09:07 BUN 16.6 mg/dL (7-18) 05/03/19 09:07 Creatinine 0.9 mg/dL (0.55-1.3) 05/03/19 09:07 Est GFR (CKD-EPI)AfAm 126.02 05/03/19 09:07 Est GFR (CKD-EPI)NonAf 108.73 05/03/19 09:07 POC Glucometer 115 UNITS (80-120) 05/05/19 16:32 Random Glucose 150 mg/dL (74-106) H 05/03/19 09:07 Calcium 9.3 mg/dL (8.5-10.1) 05/03/19 09:07 Total Bilirubin 0.8 mg/dL (0.2-1) 05/03/19 09:07 AST 124 U/L (15-37) H 05/03/19 09:07 ALT 197 U/L (13-61) H 05/03/19 09:07 Alkaline Phosphatase 109 U/L (45-117) 05/03/19 09:07 Total Protein 7.7 g/dl (6.4-8.2) 05/03/19 09:07 Albumin 3.1 g/dl (3.4-5.0) L 05/03/19 09:07 RPR Titer Nonreactive (NONREACTIVE) 05/03/19 09:07 lab noted encourage the patient share lab report with his primary care provider or neurologist for K+ level and ast level discuss the risks of ast elevation with alcohol drinking Assessment: 05/06/19 10:15 alcohol withdrawal sx Plan: continue ativan detox regimen
[2019-05-06] MEDS: POTASSIUM CHLORIDE TABS 20 MEQ TABLET.ER (FP) PO SCH (10:34)
[2019-05-06] MEDS: PRENATAL VITAMINS W/ FOLIC ACID TABLET (FP) PO SCH (10:35)
[2019-05-06] MEDS: NICOTINE 14 MG/24 HOURS TOPICAL PATCH TD SCH (10:35)
[2019-05-06] MEDS: levETIRAcetam 500 MG TABLET (FP) PO SCH ×2 (10:35→22:21)
[2019-05-06] MEDS: QUEtiapine FUMARATE 100 MG TABLET (FP) PO SCH (22:21)
[2019-05-06] MEDS: THIAMINE HCL 100 MG TABLET (FP) PO SCH (22:21)
[2019-05-07] MEDS: IBUPROFEN 400 MG TABLET (FP) PO PRN (01:21)
[2019-05-07] MEDS ORDERED: LORazepam 0.5 MG TABLET PO ONE (05:00)
[2019-05-07] MEDS ORDERED: chlordiazePOXIDE HCL 10 MG CAPSULE PO ONE (05:00)
[2019-05-07 06:13] VITALS: BP 110/72; PULSE 62; TEMP 97
--- NOTE | 2019-05-07 09:50 | DS ---
[facility] Detox Discharge Summary Admission Date: 05/02/19 Discharge Date: 05/07/19 - History Present History: Alcohol Dependence Additional Comments: 39 years old male admitted on 05/02/19 for alcohol withdrawal sx management did well with Ativan detox regimen no complication through out the detox stay seen by psychiatric treatment congruent with ACT team modality patient is alert oriented x 3 no sinus tachycaria at this time S1S2 regular rate rhythm ambulating with cane steady gait speech clearly and coherently no wheezing no chest pain no shortness of breath denies dizziness skin warm dry - Physical Exam Results Vital Signs: Vital Signs Temperature 97.0 F L 05/07/19 06:12 Pulse Rate 62 05/07/19 06:12 Respiratory Rate 18 05/07/19 06:12 Blood Pressure 110/72 05/07/19 06:12 O2 Sat by Pulse Oximetry (%) Pertinent Admission Physical Exam Findings: alcohol withdrawal sx Laboratory Last Values WBC 2.0 K/mm3 (4.0-10.0) L 05/03/19 09:07 RBC 4.12 M/mm3 (4.00-5.60) 05/03/19 09:07 Hgb 12.8 GM/dL (11.7-16.9) 05/03/19 09:07 Hct 38.0 % (35.4-49) 05/03/19 09:07 MCV 92.3 fl (80-96) 05/03/19 09:07 MCH 31.0 pg (25.7-33.7) 05/03/19 09:07 MCHC 33.6 g/dl (32.0-35.9) 05/03/19 09:07 RDW 14.4 % (11.9-15.9) 05/03/19 09:07 Plt Count 115 K/MM3 (134-434) L 05/03/19 09:07 MPV 8.6 fl (7.5-11.1) 05/03/19 09:07 Sodium 141 mmol/L (136-145) 05/03/19 09:07 Potassium 3.3 mmol/L (3.5-5.1) L 05/03/19 09:07 Chloride 111 mmol/L (98-107) H 05/03/19 09:07 Carbon Dioxide 22 mmol/L (21-32) 05/03/19 09:07 Anion Gap 8 MMOL/L (8-16) 05/03/19 09:07 BUN 16.6 mg/dL (7-18) 05/03/19 09:07 Creatinine 0.9 mg/dL (0.55-1.3) 05/03/19 09:07 Est GFR (CKD-EPI)AfAm 126.02 05/03/19 09:07 Est GFR (CKD-EPI)NonAf 108.73 05/03/19 09:07 POC Glucometer 81 UNITS (80-120) 05/07/19 05:37 Random Glucose 150 mg/dL (74-106) H 05/03/19 09:07 Calcium 9.3 mg/dL (8.5-10.1) 05/03/19 09:07 Total Bilirubin 0.8 mg/dL (0.2-1) 05/03/19 09:07 AST 124 U/L (15-37) H 05/03/19 09:07 ALT 197 U/L (13-61) H 05/03/19 09:07 Alkaline Phosphatase 109 U/L (45-117) 05/03/19 09:07 Total Protein 7.7 g/dl (6.4-8.2) 05/03/19 09:07 Albumin 3.1 g/dl (3.4-5.0) L 05/03/19 09:07 RPR Titer Nonreactive (NONREACTIVE) 05/03/19 09:07 lab noted patient agrees to bring in lab report to ACT team for follow up when patient been accepted to [facility] repeat K+ and AST follow up - Treatment Hospital Course: Detox Protocol Followed, Detoxed Safely, Responded well, Discharged Condition Good, Rehab Referral Accepted Patient has Accepted a Rehab Referral to: [email or web address] - Medication Discharge Medications: Ambulatory Orders Quetiapine Fumarate [Seroquel -] 200 mg PO BID 05/02/19 levETIRAcetam [Keppra -] 1,000 mg PO BID #60 tablet 05/06/19 - Diagnosis (1) Alcohol dependence with uncomplicated withdrawal Current Visit: Yes Status: Acute (2) Hypokalemia Current Visit: Yes Status: Acute (3) Nicotine dependence Current Visit: Yes Status: Acute Qualifiers: Nicotine product type: cigarettes Substance use status: in withdrawal Qualified Code(s): F17.213 - Nicotine dependence, cigarettes, with withdrawal (4) Substance induced mood disorder Current Visit: Yes Status: Suspected (5) Ambulates with cane Current Visit: Yes Status: Chronic (6) Fatty liver Current Visit: Yes Status: Chronic (7) Hep C w/o coma, chronic Current Visit: Yes Status: Chronic (8) Seizure Current Visit: Yes Status: Chronic (9) Elevated aspartate aminotransferase level Current Visit: Yes Status: Acute - AMA Did Patient Leave Against Medical Advice: No
== END 2019-05-07 09:12 | disposition home or self-care (01) | DRG 773 ==
LOC: YASAS 08:23 → Y3N 10:33
PROVIDERS: ADMIT Surgery; ATTEND Surgery
PROC: HZ2ZZZZ Detoxification Services for Substance Abuse Treatment (ICD-10-PCS; principal; 2019-05-02)
DX: F10.230 Alcohol dependence with withdrawal, uncomplicated (principal); F11.20 Opioid dependence, uncomplicated; F17.213 Nicotine dependence, cigarettes, with withdrawal; F19.24 Other psychoactive substance dependence with psychoactive substance-induced mood disorder; F19.10 Other psychoactive substance abuse, uncomplicated; F25.9 Schizoaffective disorder, unspecified; F43.10 Post-traumatic stress disorder, unspecified; F32.9 Major depressive disorder, single episode, unspecified; E87.6 Hypokalemia; K76.0 Fatty (change of) liver, not elsewhere classified; B18.2 Chronic viral hepatitis C; R94.5 Abnormal results of liver function studies; Z99.89 Dependence on other enabling machines and devices; Z59.0 Homelessness
CPT/HCPCS: 36415; 80053; 82962; 85027; 86593

== ENCOUNTER 2021-08-03 10:58 | Inpatient (IN) | payer OTHER ==
[2021-08-03 13:29] VITALS: BMI 26.9
[2021-08-03] MEDS ORDERED: ACETAMINOPHEN 325 MG TABLET (FP) PO PRN ×2 (13:34)
[2021-08-03] MEDS ORDERED: ONDANSETRON *ODT* 4 MG TABLET SL PRN (13:34)
[2021-08-03] MEDS ORDERED: MENTHOL/PHENOL 1 EACH UD MM PRN (13:34)
[2021-08-03] MEDS ORDERED: IBUPROFEN 400 MG TABLET (FP) PO PRN (13:34)
[2021-08-03] MEDS ORDERED: MAGNESIUM HYDROX 2400MG/30ML ORAL SUSPENSION 30 ML CUP PO PRN (13:34)
[2021-08-03] MEDS ORDERED: MAGNESIUM CITRATE 300 ML BOTTLE PO PRN (13:34)
[2021-08-03] MEDS ORDERED: MAG HYDROX/AL HYDROX/SIMETH 30 ML UNIT-DOSE CUP PO PRN (13:34)
[2021-08-03] MEDS ORDERED: chlordiazePOXIDE HCL 25 MG CAPSULE PO PRN (13:34)
[2021-08-03] MEDS ORDERED: BISMUTH SUBSALICYLATE 524 MG/30 ML PO PRN (13:34)
[2021-08-03] MEDS: hydrOXYzine PAMOATE 25 MG CAPSULE (FP) PO SCH ×3 (15:48→22:27)
[2021-08-03] MEDS: PRENATAL VITAMINS W/ FOLIC ACID TABLET (FP) PO SCH (15:51)
[2021-08-03] MEDS: chlordiazePOXIDE HCL 25 MG CAPSULE PO SCH ×2 (17:57→22:27)
[2021-08-03] MEDS ORDERED: QUEtiapine FUMARATE 200 MG TABLET PO ONE (21:00)
[2021-08-03] MEDS ORDERED: levETIRAcetam 500 MG TABLET (FP) PO SCH (22:00)
[2021-08-03] MEDS: THIAMINE HCL 100 MG TABLET (FP) PO SCH (22:27)
[2021-08-03] MEDS: levETIRAcetam 250 MG TABLET PO SCH (22:27)
[2021-08-03] MEDS: MELATONIN 5 MG TABLETS PO SCH (22:27)
[2021-08-04] MEDS: levETIRAcetam 250 MG TABLET PO SCH ×3 (06:36→22:18)
[2021-08-04] MEDS: hydrOXYzine PAMOATE 25 MG CAPSULE (FP) PO SCH ×5 (06:40→22:18)
[2021-08-04] MEDS: chlordiazePOXIDE HCL 25 MG CAPSULE PO SCH ×2 (06:40→12:18)
[2021-08-04] MEDS: NICOTINE 14 MG/24 HOURS TOPICAL PATCH TD SCH (10:21)
[2021-08-04 10:29] LABS: HEMATOCRIT 33.4 % (35.4-49); MCH 27.4 pg (25.7-33.7); MEAN CELL VOLUME 82.9 fl (80-96); MEAN PLT VOLUME 7.9 fl (7.5-11.1); PLATELET COUNT 174 10^3/uL (134-434); RBC 4.02 M/mm3 (4.00-5.60); RDW 18.1 % (11.9-15.9); WHITE BLOOD COUNT 2.4 K/mm3 (4.0-10.0)
[2021-08-04 11:11] LABS: CALCIUM 8.7 mg/dL (8.5-10.1)
[2021-08-04 11:12] LABS: ALBUMIN 3.2 g/dl (3.4-5.0); BLOOD UREA NITROGEN 8.3 mg/dL (7-18)
[2021-08-04 11:16] LABS: BILIRUBIN,TOTAL 0.5 mg/dL (0.2-1); TOT PROT 9.5 g/dl (6.4-8.2)
[2021-08-04] MEDS ORDERED: LORazepam 1 MG TABLET PO PRN (11:50)
[2021-08-04] MEDS: LORazepam 2 MG TABLET PO SCH ×3 (12:15→22:17)
[2021-08-04] MEDS: PRENATAL VITAMINS W/ FOLIC ACID TABLET (FP) PO SCH (12:17)
[2021-08-04] MEDS: METHOCARBAMOL 500 MG TABLET PO PRN (13:29)
[2021-08-04] MEDS: NICOTINE 10 MG CARTRIDGE (INHALER) IH PRN ×2 (15:13→20:00)
[2021-08-04] MEDS ORDERED: ACETAMINOPHEN 500 MG TABLET (FP) PO PRN (15:26)
[2021-08-04] MEDS: ACETAMINOPHEN 500 MG TABLET (FP) PO PRN (17:32)
[2021-08-04] MEDS: THIAMINE HCL 100 MG TABLET (FP) PO SCH (22:18)
[2021-08-04] MEDS: MELATONIN 5 MG TABLETS PO SCH (22:18)
[2021-08-04] MEDS: QUEtiapine FUMARATE 100 MG TABLET (FP) PO SCH (22:18)
[2021-08-05] MEDS ORDERED: chlordiazePOXIDE HCL 25 MG CAPSULE PO SCH (05:00)
[2021-08-05] MEDS: hydrOXYzine PAMOATE 25 MG CAPSULE (FP) PO SCH ×5 (05:29→22:51)
[2021-08-05] MEDS: LORazepam 2 MG TABLET PO SCH ×4 (05:30→22:50)
[2021-08-05] MEDS: levETIRAcetam 250 MG TABLET PO SCH ×3 (05:30→22:51)
[2021-08-05] MEDS: PRENATAL VITAMINS W/ FOLIC ACID TABLET (FP) PO SCH (10:32)
[2021-08-05] MEDS: NICOTINE 14 MG/24 HOURS TOPICAL PATCH TD SCH (10:32)
[2021-08-05 13:14] LABS: HEMATOCRIT 30.9 % (35.4-49); HEMOGLOBIN 10.2 GM/dL (11.7-16.9); MCH 27.6 pg (25.7-33.7); MEAN CELL VOLUME 83.6 fl (80-96); MEAN PLT VOLUME 9.1 fl (7.5-11.1); PLATELET COUNT 96 10^3/uL (134-434); RBC 3.69 M/mm3 (4.00-5.60); RDW 16.8 % (11.9-15.9)
[2021-08-05 13:16] LABS: WHITE BLOOD COUNT 1.6 K/mm3 (4.0-10.0)
[2021-08-05 13:24] LABS: INR 1.13 (0.83-1.09); PROTHROMBIN TIME (PATIENT) 12.7 SEC (9.7-13.0)
[2021-08-05 13:38] LABS: CALCIUM 9.2 mg/dL (8.5-10.1)
[2021-08-05 13:39] LABS: ALBUMIN 2.8 g/dl (3.4-5.0); BLOOD UREA NITROGEN 14.3 mg/dL (7-18)
[2021-08-05 13:44] LABS: BILIRUBIN,TOTAL 1.1 mg/dL (0.2-1); TOT PROT 8.3 g/dl (6.4-8.2)
[2021-08-05] MEDS: ACETAMINOPHEN 500 MG TABLET (FP) PO PRN (17:33)
[2021-08-05] MEDS: THIAMINE HCL 100 MG TABLET (FP) PO SCH (22:51)
[2021-08-05] MEDS: MELATONIN 5 MG TABLETS PO SCH (22:51)
[2021-08-05] MEDS: QUEtiapine FUMARATE 100 MG TABLET (FP) PO SCH (22:51)
[2021-08-06] MEDS ORDERED: chlordiazePOXIDE HCL 10 MG CAPSULE PO PRN
[2021-08-06] MEDS ORDERED: chlordiazePOXIDE HCL 10 MG CAPSULE PO SCH (05:00)
[2021-08-06] MEDS: LORazepam 1 MG TABLET PO SCH ×4 (07:11→22:31)
[2021-08-06] MEDS: hydrOXYzine PAMOATE 25 MG CAPSULE (FP) PO SCH ×5 (07:12→22:31)
[2021-08-06] MEDS: levETIRAcetam 250 MG TABLET PO SCH ×3 (07:12→22:31)
[2021-08-06] MEDS: NICOTINE 14 MG/24 HOURS TOPICAL PATCH TD SCH (10:32)
[2021-08-06] MEDS: PRENATAL VITAMINS W/ FOLIC ACID TABLET (FP) PO SCH (10:33)
[2021-08-06] MEDS: ACETAMINOPHEN 500 MG TABLET (FP) PO PRN (10:40)
[2021-08-06 14:45] LABS: BASO % 0.9 % (0-2.0); EOS % 6.2 % (0-4.5); HEMATOCRIT 32.8 % (35.4-49); HEMOGLOBIN 10.6 GM/dL (11.7-16.9); LYMPH % 33.6 % (8-40); MCH 27.4 pg (25.7-33.7); MCHC 32.4 g/dl (32.0-35.9); MEAN CELL VOLUME 84.7 fl (80-96); MEAN PLT VOLUME 9.6 fl (7.5-11.1); MONO % 12.5 % (3.8-10.2); NEUT % 46.8 % (42.8-82.8); PLATELET COUNT 108 10^3/uL (134-434); RBC 3.87 M/mm3 (4.00-5.60); RDW 17.1 % (11.9-15.9); WHITE BLOOD COUNT 2.4 K/mm3 (4.0-10.0)
[2021-08-06 14:58] LABS: ALBUMIN 3.2 g/dl (3.4-5.0); BLOOD UREA NITROGEN 11.4 mg/dL (7-18); CALCIUM 9.4 mg/dL (8.5-10.1)
[2021-08-06 15:01] LABS: CREATININE 0.9 mg/dL (0.55-1.3)
[2021-08-06 15:03] LABS: BILIRUBIN,TOTAL 0.5 mg/dL (0.2-1)
[2021-08-06] MEDS: LACTULOSE 20 GM/30 ML UDC (FOR ORAL USE ONLY) PO SCH ×3 (15:26→22:31)
[2021-08-06] MEDS: METHOCARBAMOL 500 MG TABLET PO PRN ×2 (17:08→22:32)
[2021-08-06] MEDS: NICOTINE 10 MG CARTRIDGE (INHALER) IH PRN (18:59)
[2021-08-06] MEDS: THIAMINE HCL 100 MG TABLET (FP) PO SCH (22:31)
[2021-08-06] MEDS: QUEtiapine FUMARATE 100 MG TABLET (FP) PO SCH (22:31)
[2021-08-06] MEDS: MELATONIN 5 MG TABLETS PO SCH (22:31)
[2021-08-07] MEDS ORDERED: LORazepam 0.5 MG TABLET PO PRN
[2021-08-07] MEDS ORDERED: LIDOCAINE 5% TOPICAL PATCH TP ONE (01:50)
[2021-08-07] MEDS ORDERED: chlordiazePOXIDE HCL 10 MG CAPSULE PO SCH (05:00)
[2021-08-07] MEDS ORDERED: LORazepam 0.5 MG TABLET PO SCH (05:00)
[2021-08-07] MEDS: levETIRAcetam 250 MG TABLET PO SCH (05:55)
[2021-08-07] MEDS: hydrOXYzine PAMOATE 25 MG CAPSULE (FP) PO SCH (05:55)
[2021-08-07] MEDS: METHOCARBAMOL 500 MG TABLET PO PRN (05:55)
[2021-08-07 09:44] VITALS: BP 136/92; PULSE 100; TEMP 98.3
[2021-08-07] MEDS ORDERED: LIDOCAINE PATCH REMOVAL MC SCH (22:00)
[2021-08-08] MEDS ORDERED: chlordiazePOXIDE HCL 10 MG CAPSULE PO ONE (05:00)
[2021-08-08] MEDS ORDERED: LORazepam 0.5 MG TABLET PO ONE (05:00)
== END 2021-08-07 09:46 | disposition left against medical advice (07) | DRG 770 ==
LOC: YASAS 10:58 → Y3N 14:23
PROVIDERS: ADMIT Allergy & Immunology; ATTEND Allergy & Immunology
PROC: HZ2ZZZZ Detoxification Services for Substance Abuse Treatment (ICD-10-PCS; principal; 2021-08-03)
DX: F10.230 Alcohol dependence with withdrawal, uncomplicated (principal); F10.282 Alcohol dependence with alcohol-induced sleep disorder; F10.280 Alcohol dependence with alcohol-induced anxiety disorder; F11.20 Opioid dependence, uncomplicated; F12.10 Cannabis abuse, uncomplicated; F17.210 Nicotine dependence, cigarettes, uncomplicated; F43.10 Post-traumatic stress disorder, unspecified; F25.9 Schizoaffective disorder, unspecified; F19.24 Other psychoactive substance dependence with psychoactive substance-induced mood disorder; K74.60 Unspecified cirrhosis of liver; G40.909 Epilepsy, unspecified, not intractable, without status epilepticus; R74.01 Elevation of levels of liver transaminase levels; D61.818 Other pancytopenia; M25.531 Pain in right wrist; M79.641 Pain in right hand; G47.00 Insomnia, unspecified; B18.2 Chronic viral hepatitis C; R94.5 Abnormal results of liver function studies; Z90.5 Acquired absence of kidney; Z87.820 Personal history of traumatic brain injury; Z56.0 Unemployment, unspecified; Z59.01 Sheltered homelessness
CPT/HCPCS: 36415; 73110-TC-RT-FY; 73130-TC-RT-FY; 80053; 82140; 85025; 85027; 85610; 86780; 93005; 93010; C9803; Q0162; U0003; U0005

== ENCOUNTER 2022-01-11 16:26 | Inpatient (IN) | payer OTHER ==
[2022-01-11 17:21] VITALS: BMI 25.0
[2022-01-11] MEDS ORDERED: MAGNESIUM CITRATE 300 ML BOTTLE PO PRN (18:25)
[2022-01-11] MEDS ORDERED: hydrOXYzine PAMOATE 25 MG CAPSULE (FP) PO PRN (18:25)
[2022-01-11] MEDS ORDERED: MAGNESIUM HYDROX 2400MG/30ML ORAL SUSPENSION 30 ML CUP PO PRN (18:25)
[2022-01-11] MEDS ORDERED: LOPERAMIDE HCL 2 MG CAPSULE PO PRN (18:25)
[2022-01-11] MEDS ORDERED: MAG HYDROX/AL HYDROX/SIMETH 30 ML UNIT-DOSE CUP PO PRN (18:25)
[2022-01-11] MEDS ORDERED: ONDANSETRON *ODT* 4 MG TABLET SL PRN (18:25)
[2022-01-11] MEDS ORDERED: BISMUTH SUBSALICYLATE 524 MG/30 ML PO PRN (18:25)
[2022-01-11] MEDS ORDERED: MELATONIN 5 MG TABLETS PO PRN (18:25)
[2022-01-11] MEDS ORDERED: ACETAMINOPHEN 325 MG TABLET (FP) PO PRN ×2 (18:25)
[2022-01-11] MEDS ORDERED: BENZOCAINE/MENTHOL (CHLORASEPTIC ) LOZENGE MM PRN (18:25)
[2022-01-11] MEDS ORDERED: DICYCLOMINE HCL 10 MG CAPSULE PO PRN (18:25)
[2022-01-11] MEDS ORDERED: chlordiazePOXIDE HCL 25 MG CAPSULE PO PRN (18:27)
[2022-01-11] MEDS ORDERED: chlordiazePOXIDE HCL 25 MG CAPSULE PO SCH (23:00)
[2022-01-11] MEDS: levETIRAcetam 500 MG TABLET (FP) PO SCH (23:34)
[2022-01-11] MEDS: chlordiazePOXIDE HCL 25 MG CAPSULE PO SCH (23:34)
[2022-01-11] MEDS: THIAMINE HCL 100 MG TABLET (FP) PO SCH (23:34)
[2022-01-12] MEDS: chlordiazePOXIDE HCL 25 MG CAPSULE PO SCH ×4 (05:23→22:12)
[2022-01-12 10:18] LABS: HEMATOCRIT 31.9 % (35.4-49); HEMOGLOBIN 10.8 GM/dL (11.7-16.9); MCHC 33.9 g/dl (32.0-35.9); MEAN CELL VOLUME 85.5 fl (80-96); MEAN PLT VOLUME 8.5 fl (7.5-11.1); PLATELET COUNT 104 10^3/uL (134-434); RBC 3.73 M/mm3 (4.00-5.60); RDW 16.9 % (11.9-15.9); WHITE BLOOD COUNT 2.4 K/mm3 (4.0-10.0)
[2022-01-12 10:28] LABS: CALCIUM 8.7 mg/dL (8.5-10.1)
[2022-01-12 10:29] LABS: ALBUMIN 3.3 g/dl (3.4-5.0); BLOOD UREA NITROGEN 29.1 mg/dL (7-18)
[2022-01-12 10:35] LABS: TOT PROT 8.7 g/dl (6.4-8.2)
[2022-01-12] MEDS: PRENATAL VITAMINS W/ FOLIC ACID TABLET (FP) PO SCH (10:44)
[2022-01-12] MEDS: levETIRAcetam 500 MG TABLET (FP) PO SCH ×2 (10:44→22:13)
[2022-01-12] MEDS ORDERED: NICOTINE POLACRILEX 2 MG GUM BUC PRN (15:04)
[2022-01-12] MEDS ORDERED: NICOTINE 10 MG CARTRIDGE (INHALER) IH PRN (15:05)
[2022-01-12] MEDS: NICOTINE 21 MG/24 HOURS TOPICAL PATCH TD SCH (18:12)
[2022-01-12] MEDS: THIAMINE HCL 100 MG TABLET (FP) PO SCH (22:13)
[2022-01-12] MEDS: QUEtiapine FUMARATE 200 MG TABLET PO SCH (22:13)
[2022-01-13] MEDS: chlordiazePOXIDE HCL 25 MG CAPSULE PO SCH ×4 (06:36→22:35)
[2022-01-13] MEDS ORDERED: NICOTINE 21 MG/24 HOURS TOPICAL PATCH TD SCH (10:00)
[2022-01-13] MEDS: levETIRAcetam 500 MG TABLET (FP) PO SCH ×2 (10:24→22:33)
[2022-01-13] MEDS: PRENATAL VITAMINS W/ FOLIC ACID TABLET (FP) PO SCH (10:24)
[2022-01-13] MEDS: NICOTINE 21 MG/24 HOURS TOPICAL PATCH TD SCH (10:24)
[2022-01-13] MEDS: IBUPROFEN 400 MG TABLET (FP) PO PRN ×2 (10:26→23:04)
[2022-01-13 10:49] LABS: HEMATOCRIT 32.3 % (35.4-49); HEMOGLOBIN 10.7 GM/dL (11.7-16.9); MCH 28.8 pg (25.7-33.7); MCHC 33.1 g/dl (32.0-35.9); MEAN CELL VOLUME 86.8 fl (80-96); MEAN PLT VOLUME 8.6 fl (7.5-11.1); PLATELET COUNT 91 10^3/uL (134-434); RBC 3.72 M/mm3 (4.00-5.60); RDW 16.5 % (11.9-15.9)
[2022-01-13 11:02] LABS: WHITE BLOOD COUNT 1.6 K/mm3 (4.0-10.0)
[2022-01-13 13:27] LABS: ANISOCYTOSIS 0; HELMET CELLS 0; HOWELL-JOLLY BODIES 0; MACROCYTOSIS 0; OVALOCYTE 0; ROULEAU 0; SICKELED CELLS 0; TARGET CELLS 0; TEAR DROP CELLS 0; TOXIC GRANULATION 0
[2022-01-13] MEDS: THIAMINE HCL 100 MG TABLET (FP) PO SCH (22:34)
[2022-01-13] MEDS: QUEtiapine FUMARATE 200 MG TABLET PO SCH (22:36)
[2022-01-13] MEDS: METHOCARBAMOL 500 MG TABLET PO PRN (23:04)
[2022-01-14] MEDS ORDERED: chlordiazePOXIDE HCL 10 MG CAPSULE PO PRN
[2022-01-14] MEDS: chlordiazePOXIDE HCL 10 MG CAPSULE PO SCH ×4 (06:01→22:16)
[2022-01-14] MEDS: PRENATAL VITAMINS W/ FOLIC ACID TABLET (FP) PO SCH (10:42)
[2022-01-14] MEDS: levETIRAcetam 500 MG TABLET (FP) PO SCH ×2 (10:42→22:15)
[2022-01-14] MEDS: NICOTINE 21 MG/24 HOURS TOPICAL PATCH TD SCH (10:44)
[2022-01-14] MEDS: IBUPROFEN 400 MG TABLET (FP) PO PRN ×2 (10:45→17:58)
[2022-01-14] MEDS: QUEtiapine FUMARATE 200 MG TABLET PO SCH (22:14)
[2022-01-14] MEDS: THIAMINE HCL 100 MG TABLET (FP) PO SCH (22:16)
[2022-01-15 00:07] LABS: SARS-CoV-2 NAA Not Detected (Not Detected)
[2022-01-15] MEDS: METHOCARBAMOL 500 MG TABLET PO PRN (05:30)
[2022-01-15] MEDS: chlordiazePOXIDE HCL 10 MG CAPSULE PO SCH ×2 (05:30→18:18)
[2022-01-15] MEDS: NICOTINE 21 MG/24 HOURS TOPICAL PATCH TD SCH (10:51)
[2022-01-15] MEDS: PRENATAL VITAMINS W/ FOLIC ACID TABLET (FP) PO SCH (10:52)
[2022-01-15] MEDS: levETIRAcetam 500 MG TABLET (FP) PO SCH ×2 (10:52→22:31)
[2022-01-15 13:42] LABS: BASO % 0.9 % (0-2.0); EOS % 4.5 % (0-4.5); HEMATOCRIT 30.8 % (35.4-49); HEMOGLOBIN 10.1 GM/dL (11.7-16.9); MCH 28.8 pg (25.7-33.7); MCHC 32.7 g/dl (32.0-35.9); MEAN CELL VOLUME 88.2 fl (80-96); MEAN PLT VOLUME 8.2 fl (7.5-11.1); MONO % 14.3 % (3.8-10.2); NEUT % 47.3 % (42.8-82.8); PLATELET COUNT 110 10^3/uL (134-434); RDW 16.2 % (11.9-15.9); WHITE BLOOD COUNT 2.3 K/mm3 (4.0-10.0)
[2022-01-15 13:57] LABS: CALCIUM 9.2 mg/dL (8.5-10.1)
[2022-01-15 14:00] LABS: CREATININE 0.9 mg/dL (0.55-1.3)
[2022-01-15 14:02] LABS: TOT PROT 7.9 g/dl (6.4-8.2)
[2022-01-15 14:12] LABS: BILIRUBIN,TOTAL 0.4 mg/dL (0.2-1)
[2022-01-15 14:27] LABS: ANISOCYTOSIS 2+; MACROCYTOSIS 0; OVALOCYTE 2+; TEAR DROP CELLS 1+
[2022-01-15 15:19] LABS: BLOOD UREA NITROGEN 19.2 mg/dL (7-18)
[2022-01-15] MEDS: IBUPROFEN 400 MG TABLET (FP) PO PRN (18:22)
[2022-01-15] MEDS: THIAMINE HCL 100 MG TABLET (FP) PO SCH (22:31)
[2022-01-15] MEDS: QUEtiapine FUMARATE 200 MG TABLET PO SCH (22:31)
[2022-01-16] MEDS ORDERED: chlordiazePOXIDE HCL 10 MG CAPSULE PO ONE (05:00)
[2022-01-16] MEDS: levETIRAcetam 500 MG TABLET (FP) PO SCH (09:51)
[2022-01-16] MEDS: NICOTINE 21 MG/24 HOURS TOPICAL PATCH TD SCH (09:52)
[2022-01-16] MEDS: PRENATAL VITAMINS W/ FOLIC ACID TABLET (FP) PO SCH (09:52)
[2022-01-16 12:59] VITALS: BP 125/77; PULSE 103; TEMP 97.7
[2022-01-17 16:08] LABS: SARS-CoV-2 NAA Not Detected (Not Detected)
== END 2022-01-16 13:07 | disposition home or self-care (01) | DRG 775 ==
LOC: YASAS 16:26 → Y3N 20:19
PROVIDERS: ADMIT Allergy & Immunology; ATTEND Surgery
PROC: HZ2ZZZZ Detoxification Services for Substance Abuse Treatment (ICD-10-PCS; principal; 2022-01-11)
DX: F10.230 Alcohol dependence with withdrawal, uncomplicated (principal); F17.210 Nicotine dependence, cigarettes, uncomplicated; F19.24 Other psychoactive substance dependence with psychoactive substance-induced mood disorder; F25.9 Schizoaffective disorder, unspecified; D64.9 Anemia, unspecified; R56.1 Post traumatic seizures; K74.60 Unspecified cirrhosis of liver; Z86.19 Personal history of other infectious and parasitic diseases; Z87.820 Personal history of traumatic brain injury; Z59.00 Homelessness unspecified; Z56.0 Unemployment, unspecified
CPT/HCPCS: 36415; 80053; 84520; 85025; 85027; 86780; 87811; C9803-CS; U0003; U0005